=== PATIENT | male | born 1960 | race Two or more races ===

== ENCOUNTER 2022-04-06 12:29 | Inpatient (IN) | payer OTHER ==
[~2022-04-06] VITALS: Ht 167.6 cm; Wt 71.9 kg
[2022-04-06 13:28] LABS: Basophils # (auto) 0 10 ^3/uL (0-0.2); Basophils % (auto) 0.6 % (0.0-2.0); Eosinophils # (auto) 0.1 10 ^3/uL (0-0.8); Eosinophils % (auto) 2.5 % (0.0-7.0); Hematocrit 40.1 % (41.0-53.0); Hemoglobin 13.4 g/dL (13.5-17.5); Lymphocytes # (auto) 1.1 10 ^3/uL (0.4-5.4); Lymphocytes % (auto) 23.5 % (10.0-50.0); Mean Corpuscular Hemoglobin 32.9 pg (28.0-32.0); Mean Corpuscular Hgb Conc. 33.4 g/dL (32.0-36.0); Mean Corpuscular Volume 98.4 fL (80.0-100.0); Monocytes # (auto) 0.5 10 ^3/uL (0-1.3); Monocytes % (auto) 10.7 % (0.0-12.0); Neutrophils # (auto) 2.9 10 ^3/uL (1.6-8.6); Neutrophils % (auto) 62.7 % (37.0-80.0); Nucleated Red Blood Cells % 0.2 %; Red Blood Cells 4.08 10^6/uL (4.5-5.90); White Blood Cell 4.6 10^3/uL (4.4-10.8)
[2022-04-06] MEDS ORDERED: cloNIDine HCL 0.1 MG TAB PO ONE (13:45)
[2022-04-06 14:06] LABS: Albumin 3.2 g/dL (3.4-5.0); BUN/Creatinine Ratio 6.8; Bilirubin, Total 1.1 mg/dL (0.2-1.0); Calcium 8.4 mg/dL (8.5-10.1); Potassium 4.1 mmol/L (3.5-5.1); Total Protein 6.8 g/dL (6.4-8.2)
[2022-04-06] MEDS ORDERED: HYDROcodone-ACET 5/325MG TAB PO PRN (21:15)
[2022-04-06] MEDS ORDERED: ACETAMINOPHEN 325 MG TAB PO PRN (21:15)
[2022-04-06] MEDS ORDERED: DOCUSATE SOD 100 MG CAP PO PRN (21:15)
[2022-04-06] MEDS ORDERED: SODIUM CHLORIDE 0.9% 1,000 ML IV SCH (21:15)
[2022-04-06] MEDS ORDERED: hydrALAZINE HCL 20 MG/ML VL IV PRN (21:15)
[2022-04-06] MEDS ORDERED: ONDANSETRON HCL 4 MG/2 ML VIAL IV PRN (21:15)
[2022-04-06] MEDS ORDERED: NITROGLYCERIN 0.4 MG SL TAB SL PRN (23:45)
[2022-04-06] MEDS ORDERED: MORPHINE SULFATE INJ 2 MG/ml SYRG IV PRN (23:45)
[2022-04-06] MEDS: FAMOTIDINE (10MG/ML) 2ML VL IV SCH (23:51)
[2022-04-06] MEDS: METOPROLOL TARTRATE 50 MG TAB PO SCH (23:53)
[2022-04-07 04:57] LABS: Basophils # (auto) 0 10 ^3/uL (0-0.2); Basophils % (auto) 0.5 % (0.0-2.0); Eosinophils # (auto) 0.1 10 ^3/uL (0-0.8); Eosinophils % (auto) 4.7 % (0.0-7.0); Hematocrit 36.7 % (41.0-53.0); Hemoglobin 12.2 g/dL (13.5-17.5); Lymphocytes % (auto) 30.4 % (10.0-50.0); Mean Corpuscular Hemoglobin 32.4 pg (28.0-32.0); Mean Corpuscular Hgb Conc. 33.3 g/dL (32.0-36.0); Mean Corpuscular Volume 97.4 fL (80.0-100.0); Monocytes # (auto) 0.4 10 ^3/uL (0-1.3); Monocytes % (auto) 13.7 % (0.0-12.0); Neutrophils # (auto) 1.6 10 ^3/uL (1.6-8.6); Neutrophils % (auto) 50.7 % (37.0-80.0); Nucleated Red Blood Cells % 0.1 %; Red Blood Cells 3.77 10^6/uL (4.5-5.90); White Blood Cell 3.2 10^3/uL (4.4-10.8)
[2022-04-07 05:39] LABS: Potassium 4.4 mmol/L (3.5-5.1)
[2022-04-07 05:43] LABS: Albumin 2.7 g/dL (3.4-5.0); BUN/Creatinine Ratio 15.1
[2022-04-07 05:56] LABS: Bilirubin, Total 1.1 mg/dL (0.2-1.0); Total Protein 5.7 g/dL (6.4-8.2)
[2022-04-07] MEDS: METOPROLOL TARTRATE 50 MG TAB PO SCH (10:00)
[2022-04-07] MEDS: FAMOTIDINE (10MG/ML) 2ML VL IV SCH ×2 (10:00→21:31)
[2022-04-07] MEDS: FUROSEMIDE 40 MG/4 ML VIAL IV SCH (11:48)
[2022-04-07 13:43] LABS: INR 1.24 (0.9-1.15)
[2022-04-07 18:42] VITALS: BP 145/84
[2022-04-07] MEDS: CARVEDILOL 3.125 MG TAB PO SCH (21:32)
[2022-04-07 22:00] VITALS: BP 149/65
[2022-04-08] VITALS (7 sets, daily range): BP systolic 120–177; BP diastolic 43–109
[2022-04-08] MEDS: CARVEDILOL 3.125 MG TAB PO SCH ×2 (09:11→22:01)
[2022-04-08] MEDS: FAMOTIDINE (10MG/ML) 2ML VL IV SCH ×2 (09:11→21:59)
[2022-04-08] MEDS: FUROSEMIDE 40 MG/4 ML VIAL IV SCH (09:11)
[2022-04-08 10:01] LABS: Hepatitis A Total Antibody Positive (Negative)
[2022-04-08 11:31] LABS: Hepatitis B Surface Antibody Negative (Negative); Hepatitis C Antibody Negative (Negative)
[2022-04-09 05:00] VITALS: BP 124/73
[2022-04-09 08:00] VITALS: BP 135/74
[2022-04-09 09:00] VITALS: BP 135/74
[2022-04-09] MEDS: FUROSEMIDE 40 MG/4 ML VIAL IV SCH (09:02)
[2022-04-09] MEDS: FAMOTIDINE (10MG/ML) 2ML VL IV SCH (09:02)
[2022-04-09] MEDS: CARVEDILOL 3.125 MG TAB PO SCH (09:03)
[2022-04-09] MEDS ORDERED: FURO1TAB31 PO (10:54)
[2022-04-09 13:00] VITALS: BP 109/64
[2022-04-09 13:18] VITALS: BP 109/64
[2022-04-10] MEDS ORDERED: FUROSEMIDE 20 MG TAB PO SCH (10:00)
== END 2022-04-09 13:54 | disposition home or self-care (01) | DRG 434 ==
LOC: ER 12:30 → TELE 23:40 → TELE-WESTW 04-07 19:01
PROVIDERS: ADMIT Nurse Practitioner Family; ATTEND Family Medicine
PROC: 0W9G30Z Drainage of Peritoneal Cavity with Drainage Device, Percutaneous Approach (ICD-10-PCS; principal; 2022-04-08)
DX: K70.31 Alcoholic cirrhosis of liver with ascites (principal); I16.0 Hypertensive urgency; F10.10 Alcohol abuse, uncomplicated; R14.0 Abdominal distension (gaseous); I50.9 Heart failure, unspecified; I11.0 Hypertensive heart disease with heart failure; F17.200 Nicotine dependence, unspecified, uncomplicated; Z20.822 Contact with and (suspected) exposure to COVID-19; R79.89 Other specified abnormal findings of blood chemistry; R16.1 Splenomegaly, not elsewhere classified; Z71.6 Tobacco abuse counseling; Z79.899 Other long term (current) drug therapy
CPT/HCPCS: 36415; 71045; 74176; 76700; 76942; 80053; 83986; 84484; 85025; 85610; 86704; 86706; 86708; 86803; 87205; 87340; 87426; 89051; 93005; 93306; 96360; 99291; G0378; J3490

== ENCOUNTER 2023-11-15 12:01 | Inpatient (IN) | payer MEDICARE, OTHER ==
[~2023-11-15] VITALS: Ht 165.1 cm; Wt 68.0 kg
[~2023-11-15 12:01] MED LIST: FURO1TAB31 PO
[2023-11-15] MEDS: SODIUM CHLORIDE 0.9% 2,000 ML IV ONE (12:41)
[2023-11-15 12:58] LABS: Basophils # (auto) 0 10 ^3/uL (0-0.2); Eosinophils # (auto) 0.1 10 ^3/uL (0-0.8); Hematocrit 36.1 % (41.0-53.0); Mean Corpuscular Hgb Conc. 33.3 g/dL (32.0-36.0); Monocytes # (auto) 0.6 10 ^3/uL (0-1.3); Neutrophils # (auto) 2.6 10 ^3/uL (1.6-8.6)
[2023-11-15 13:00] LABS: Basophils % (auto) 0.6 % (0.0-2.0); Eosinophils % (auto) 2.8 % (0.0-7.0); Lymphocytes % (auto) 22.7 % (10.0-50.0); Mean Corpuscular Hemoglobin 33.6 pg (28.0-32.0); Mean Corpuscular Volume 100.8 fL (80.0-100.0); Monocytes % (auto) 14.1 % (0.0-12.0); Neutrophils % (auto) 59.8 % (37.0-80.0); Red Blood Cells 3.58 10^6/uL (4.5-5.90); Red Cell Distribution Width 14.2 % (11.8-14.3); White Blood Cell 4.4 10^3/uL (4.4-10.8)
[2023-11-15 13:24] VITALS: RESP 20; O2SAT 96
[2023-11-15] MEDS: KETOROLAC TROMETH 30 MG/ML 1ML VIAL IV ONE (16:00)
[2023-11-15] MEDS: levoFLOXacin 500MG 100 ML IV ONE (16:01)
[2023-11-15] MEDS: ONDANSETRON ODT 4 MG TAB PO ONE (16:01)
[2023-11-15] MEDS: FUROSEMIDE 100 MG/10ML VIAL IV ONE (16:01)
[2023-11-15] MEDS: metroNIDAZOLE 500MG/100ML 100 ML IV ONE (16:01)
[2023-11-15 17:24] LABS: Urine Bacteria None Seen /hpf (None Seen); Urine WBC None Seen /hpf (0 - 3)
[2023-11-15 17:30] LABS: Urine Blood Negative /uL (Negative); Urine Clarity Clear (Clear); Urine Color Colorless (Yellow); Urine Protein, UAD Negative (Negative); Urine Specific Gravity 1.005 (1.001-1.035); Urine Urobilinogen Normal (Negative); Urine pH 5.5 (5.0-9.0)
[2023-11-15 17:45] LABS: Amphetamine Screen, Urine Neg (NEGATIVE); Barbiturate Scree,Urine Neg (NEGATIVE); Benzodiazephine Screen, Urine Neg (NEGATIVE); Cocaine Screen, Urine Neg (NEGATIVE)
[2023-11-15] MEDS ORDERED: NITROGLYCERIN 0.4 MG SL TAB SL PRN (17:45)
[2023-11-15] MEDS ORDERED: ONDANSETRON HCL 4 MG/2 ML VIAL IV PRN (17:45)
[2023-11-15] MEDS ORDERED: MORPHINE SULFATE INJ 2 MG/ml SYRG IV PRN ×2 (17:45)
[2023-11-15] MEDS ORDERED: DOCUSATE SOD 100 MG CAP PO PRN (17:45)
[2023-11-15 17:46] LABS: Cannabinoid Screen, Urine Neg (NEGATIVE); Opiate Scree,Urine Neg (NEGATIVE); Phencyclidine Screen, Urine Neg (NEGATIVE)
[2023-11-15] MEDS: FUROSEMIDE 40 MG/4 ML VIAL IV SCH (18:20)
[2023-11-15] MEDS: PANTOPRAZOLE 40 MG/10 ML VIAL INJ IV ONE (18:46)
[2023-11-15] MEDS ORDERED: SPIR50TA5 PO (20:12)
[2023-11-15] MEDS ORDERED: LOSA-534 PO (20:12)
[2023-11-15 21:00] VITALS: BP 142/64; PULSE 65; RESP 18; TEMP 98.2; O2SAT 98
[2023-11-15] MEDS: CIPROFLOXACIN 400MG/200ML 200 ML IV SCH (21:43)
[2023-11-15] MEDS: metroNIDAZOLE 500MG/100ML 100 ML IV SCH (22:50)
[2023-11-15] MEDS: PANTOPRAZOLE 40 MG/10 ML VIAL INJ IV SCH (22:50)
[2023-11-16 01:00] VITALS: BP 138/64; PULSE 82; RESP 18; TEMP 98.1; O2SAT 97
[2023-11-16 05:00] VITALS: BP 132/65; PULSE 83; RESP 17; TEMP 98; O2SAT 96
[2023-11-16 05:54] LABS: Basophils # (auto) 0 10 ^3/uL (0-0.2); Basophils % (auto) 0.4 % (0.0-2.0); Eosinophils # (auto) 0.2 10 ^3/uL (0-0.8); Hematocrit 31.6 % (41.0-53.0); Mean Corpuscular Hemoglobin 34.1 pg (28.0-32.0); Mean Corpuscular Hgb Conc. 33.7 g/dL (32.0-36.0); Red Blood Cells 3.12 10^6/uL (4.5-5.90)
[2023-11-16 06:02] LABS: Eosinophils % (auto) 4.5 % (0.0-7.0); Hemoglobin 10.7 g/dL (13.5-17.5); Lymphocytes # (auto) 0.7 10 ^3/uL (0.4-5.4); Monocytes # (auto) 0.5 10 ^3/uL (0-1.3); Monocytes % (auto) 16.1 % (0.0-12.0); Neutrophils # (auto) 1.9 10 ^3/uL (1.6-8.6); Nucleated Red Blood Cells % 0.4 %; Red Cell Distribution Width 14.4 % (11.8-14.3); White Blood Cell 3.3 10^3/uL (4.4-10.8)
[2023-11-16 06:37] LABS: Alanine Aminotransferase 57 U/L (7-40); Alkaline Phosphatase 141 U/L (46-116); Anion Gap 4 (5-15); Calcium 8.7 mg/dL (8.5-10.1); Carbon Dioxide 22 mmol/L (20-30); Chloride 111 mmol/L (98-107); Glucose 116 mg/dL (74-106); Sodium 137 mmol/L (136-145)
[2023-11-16 06:38] LABS: Albumin 3.2 g/dL (3.2-4.8); Aspartate Aminotransferase 52 U/L (13-40); Blood Urea Nitrogen 24 mg/dL (9-23)
[2023-11-16 06:40] LABS: Bilirubin, Total 0.9 mg/dL (0.2-1.0); Total Protein 5.9 g/dL (5.7-8.2)
[2023-11-16 06:47] LABS: Potassium 5.6 mmol/L (3.5-5.1)
[2023-11-16 08:52] VITALS: BP 132/61; PULSE 81; RESP 18; TEMP 98.4; O2SAT 97
[2023-11-16 13:00] VITALS: BP 128/55; PULSE 79; RESP 19; TEMP 98.4; O2SAT 100
[2023-11-16] MEDS: DEXTROSE (50%) 50ML SYRG IV ONE (14:38)
[2023-11-16] MEDS: CALCIUM GLUC 1,000mg/50ml-NS 50 ML IV ONE (14:39)
[2023-11-16] MEDS: FUROSEMIDE 20 MG/2 ML VIAL IV ONE (14:40)
[2023-11-16] MEDS: InsuLIN REG 1unit/0.01ml Soln (100units/ml) IV ONE (14:41)
[2023-11-16] MEDS: SODIUM ZIRCONIUM CYCL 10 GM PAK PO ONE (14:41)
[2023-11-16 16:39] VITALS: BP 110/61; PULSE 68; RESP 19; TEMP 98; O2SAT 98
[2023-11-16] MEDS: LACTULOSE 20Gm/30ML SOLN PO SCH (18:11)
[2023-11-16 21:00] VITALS: BP 133/73; PULSE 90; RESP 18; TEMP 98.7; O2SAT 97
[2023-11-17 01:00] VITALS: BP 129/75; PULSE 88; RESP 17; TEMP 98.9; O2SAT 98
[2023-11-17 05:00] VITALS: BP 127/66; PULSE 71; RESP 18; TEMP 97.8; O2SAT 98
[2023-11-17 08:40] VITALS: BP 130/62; PULSE 75; RESP 18; TEMP 98; O2SAT 98
[2023-11-17 09:41] LABS: Hepatitis B Surface Antigen Negative (Negative)
[2023-11-17 09:44] LABS: INR 1.41 (0.9-1.15); Partial Thromboplastin Time 29.8 SEC (24.5-34.5); Prothrombin Time 14.6 sec (9.3-11.8)
[2023-11-17 10:01] LABS: Hepatitis A Ab IgM Negative
[2023-11-17 10:03] LABS: Hepatitis C Antibody Negative (Negative)
[2023-11-17 11:09] LABS: Hepatitis B Core IgM Negative
[2023-11-17 12:50] VITALS: BP 128/58; PULSE 71; RESP 20; TEMP 98; O2SAT 97
[2023-11-17 16:40] VITALS: BP 132/72; PULSE 86; RESP 20; TEMP 97.5; O2SAT 98
[2023-11-17 21:00] VITALS: BP 142/70; PULSE 85; RESP 17; TEMP 97.6; O2SAT 97
[2023-11-17 21:59] LABS: Body Fluid Red Blood Cells 185 CUMM (0-2000); Body Fluid White Blood Cells 273 CUMM (0-200)
[2023-11-17 22:00] LABS: Body Fluid Polymorphonuclear 20 % (0-25)
[2023-11-18 01:00] VITALS: BP 116/44; PULSE 76; RESP 16; TEMP 97.4; O2SAT 96
[2023-11-18 05:00] VITALS: BP 121/66; PULSE 88; RESP 18; TEMP 98; O2SAT 98
[2023-11-18 08:45] VITALS: BP 136/76; PULSE 91; RESP 17; TEMP 97.9; O2SAT 95
[2023-11-18 13:16] VITALS: BP 140/79; PULSE 89; RESP 17; TEMP 97.9; O2SAT 96
[2023-11-18 17:50] VITALS: BP 134/72; PULSE 86; RESP 17; TEMP 97.8; O2SAT 97
[2023-11-18 21:00] VITALS: BP 125/50; PULSE 20; TEMP 98.3; O2SAT 96
[2023-11-19 01:00] VITALS: BP 107/51; PULSE 73; RESP 20; TEMP 98; O2SAT 96
[2023-11-19 05:00] VITALS: BP 109/57; PULSE 87; RESP 20; TEMP 97.6; O2SAT 95
[2023-11-19 09:04] VITALS: BP 117/54; PULSE 77; RESP 18; TEMP 97.8; O2SAT 96
[2023-11-19 10:06] LABS: Protein, Body Fluid 1.8 g/dL (.)
[2023-11-19] MEDS ORDERED: MET500T PO (12:54)
[2023-11-19] MEDS ORDERED: LACT10PA2 PO (12:54)
[2023-11-19] MEDS ORDERED: CIPR-173 PO (12:54)
[2023-11-19 14:57] VITALS: BP 109/63; TEMP 36.6
[2023-11-19 15:11] VITALS: BP 141/77; PULSE 75; RESP 18; TEMP 98.1; O2SAT 97
== END 2023-11-19 16:40 | disposition home or self-care (01) | DRG 280 ==
LOC: ER 12:01 → OVERFLOW 17:51 → WEST WING 17:51
PROVIDERS: ADMIT Nurse Practitioner Family; ATTEND Family Medicine
PROC: 0W9G3ZZ Drainage of Peritoneal Cavity, Percutaneous Approach (ICD-10-PCS; principal; 2023-11-17)
PROC: 05HC33Z Insertion of Infusion Device into Left Basilic Vein, Percutaneous Approach (ICD-10-PCS; 2023-11-18)
PROC: B54NZZA Ultrasonography of Left Upper Extremity Veins, Guidance (ICD-10-PCS; 2023-11-18)
DX: K70.31 Alcoholic cirrhosis of liver with ascites (principal); D69.6 Thrombocytopenia, unspecified; K76.6 Portal hypertension; E44.0 Moderate protein-calorie malnutrition; E88.09 Other disorders of plasma-protein metabolism, not elsewhere classified; E87.5 Hyperkalemia; K52.9 Noninfective gastroenteritis and colitis, unspecified; I10 Essential (primary) hypertension; K40.90 Unilateral inguinal hernia, without obstruction or gangrene, not specified as recurrent; K42.9 Umbilical hernia without obstruction or gangrene; K80.20 Calculus of gallbladder without cholecystitis without obstruction; F17.210 Nicotine dependence, cigarettes, uncomplicated; Z88.0 Allergy status to penicillin; Z79.899 Other long term (current) drug therapy; Z83.3 Family history of diabetes mellitus; Z68.24 Body mass index [BMI] 24.0-24.9, adult
CPT/HCPCS: 36415; 74176; 76705; 76942; 80053; 80074; 80307; 81001; 82105; 82140; 82728; 82962; 83880; 83986; 84132; 84484; 85025; 85610; 85730; 86850; 86900; 86901; 87205; 89051; 93005; 97110; 97116; 97163; 97530; 99291; C9113; G0378; J1815; J1885; J1956; J3490; Q0162

== ENCOUNTER 2023-12-07 11:40 | Inpatient (IN) | payer MEDICAID ==
[~2023-12-07] VITALS: Ht 165.1 cm; Wt 70.4 kg
[~2023-12-07 11:40] MED LIST changes: +CIPR-173 PO; -FURO1TAB31 PO; +LACT10PA2 PO; +LOSA-534 PO; +MET500T PO; +SPIR50TA5 PO
[2023-12-07 12:31] LABS: Basophils # (auto) 0 10 ^3/uL (0-0.2); Eosinophils # (auto) 0.2 10 ^3/uL (0-0.8); Monocytes # (auto) 0.5 10 ^3/uL (0-1.3); Nucleated Red Blood Cells % 0.1 %; Red Cell Distribution Width 14.5 % (11.8-14.3)
[2023-12-07 12:35] LABS: Basophils % (auto) 0.6 % (0.0-2.0); Eosinophils % (auto) 2.4 % (0.0-7.0); Hematocrit 32.3 % (41.0-53.0); Hemoglobin 10.7 g/dL (13.5-17.5); Lymphocytes # (auto) 1.5 10 ^3/uL (0.4-5.4); Lymphocytes % (auto) 23.9 % (10.0-50.0); Mean Corpuscular Hemoglobin 34.2 pg (28.0-32.0); Mean Corpuscular Hgb Conc. 33.2 g/dL (32.0-36.0); Neutrophils # (auto) 4.1 10 ^3/uL (1.6-8.6); Neutrophils % (auto) 65.1 % (37.0-80.0); Red Blood Cells 3.13 10^6/uL (4.5-5.90); White Blood Cell 6.2 10^3/uL (4.4-10.8)
[2023-12-07 12:42] LABS: Chloride 113 mmol/L (98-107); Sodium 133 mmol/L (136-145)
[2023-12-07 12:43] LABS: Anion Gap 6 (5-15); Calcium 9.9 mg/dL (8.7-10.4); Carbon Dioxide 14 mmol/L (20-30)
[2023-12-07 12:48] LABS: Blood Urea Nitrogen 60 mg/dL (9-23); Glucose 158 mg/dL (74-106)
[2023-12-07] MEDS: ONDANSETRON HCL 4 MG/2 ML VIAL IV ONE (12:49)
[2023-12-07 12:59] LABS: Potassium 7.8 mmol/L (3.5-5.1)
[2023-12-07 13:50] VITALS: PULSE 89; RESP 18; O2SAT 98
[2023-12-07] MEDS: CALCIUM GLUC 1,000mg/50ml-NS 50 ML IV ONE (14:00)
[2023-12-07] MEDS: SODIUM ZIRCONIUM CYCL 10 GM PAK PO ONE ×2 (14:10→17:16)
[2023-12-07] MEDS: SODIUM BICARB 8.4% 50Meq/50ml SYR INJ IV ONE (14:15)
[2023-12-07] MEDS: ALBUTEROL SULF 2.5 MG/0.5ML(0.5%) NEB SOLN NEB ONE (14:30)
[2023-12-07] MEDS: FUROSEMIDE 20 MG/2 ML VIAL IV ONE (14:36)
[2023-12-07] MEDS: InsuLIN REG 1unit/0.01ml Soln (100units/ml) IV ONE ×2 (15:01→17:20)
[2023-12-07] MEDS: DEXTROSE (50%) 50ML SYRG IV ONE ×2 (15:02→17:19)
[2023-12-07] MEDS ORDERED: DOCUSATE SOD 100 MG CAP PO PRN (16:30)
[2023-12-07] MEDS ORDERED: D5W 5% 1,000 ML IV ONE (16:30)
[2023-12-07 17:02] LABS: Chloride 113 mmol/L (98-107); Sodium 136 mmol/L (136-145)
[2023-12-07 17:03] LABS: Anion Gap 6 (5-15); Carbon Dioxide 17 mmol/L (20-30)
[2023-12-07 17:04] LABS: Calcium 9.9 mg/dL (8.7-10.4)
[2023-12-07 17:08] LABS: BUN/Creatinine Ratio 30.8 (10.0-20.0); Blood Urea Nitrogen 68 mg/dL (9-23); Glucose 124 mg/dL (74-106)
[2023-12-07] MEDS: SODIUM CHLORIDE 0.9% 500 ML IV ONE (18:35)
[2023-12-07] MEDS: D5W/SOD CHLO 0.9% 1,000 ML IV SCH (18:37)
[2023-12-07 20:32] VITALS: PULSE 89; RESP 17; O2SAT 99
[2023-12-07 20:43] LABS: Chloride 112 mmol/L (98-107); Sodium 134 mmol/L (136-145)
[2023-12-07 20:44] LABS: Anion Gap 7 (5-15); Calcium 9.6 mg/dL (8.7-10.4); Carbon Dioxide 15 mmol/L (20-30)
[2023-12-07 20:49] LABS: BUN/Creatinine Ratio 30.1 (10.0-20.0); Blood Urea Nitrogen 63 mg/dL (9-23); Glucose 106 mg/dL (74-106)
[2023-12-07] MEDS: SODIUM CHLOR 0.9% PF (SALINE LOCK) 10ML VIAL/SYR IV SCH (22:00)
[2023-12-08] VITALS (16 sets, daily range): BP systolic 65–113; BP diastolic 44–61; PULSE 105–133; RESP 19–34; TEMP 94.6–98.3; O2SAT 98
[2023-12-08] MEDS: InsuLIN REG 1unit/0.01ml Soln (100units/ml) IV ONE ×4 (00:15→23:28)
[2023-12-08] MEDS: ALBUTEROL SULF 2.5 MG/0.5ML(0.5%) NEB SOLN NEB ONE ×3 (00:37→21:35)
[2023-12-08] MEDS: SODIUM BICARB 8.4% 50Meq/50ml SYR Vial IV ONE ×5 (00:39→22:44)
[2023-12-08 00:45] LABS: Chloride 112 mmol/L (98-107); Sodium 134 mmol/L (136-145)
[2023-12-08 00:46] LABS: Anion Gap 6 (5-15); Carbon Dioxide 16 mmol/L (20-30)
[2023-12-08 00:47] LABS: Calcium 9.1 mg/dL (8.7-10.4)
[2023-12-08] MEDS: CALCIUM GLUC 1,000mg/50ml-NS 50 ML IV ONE ×4 (00:50→23:22)
[2023-12-08 00:51] LABS: Glucose 133 mg/dL (74-106)
[2023-12-08] MEDS: DEXTROSE (50%) 50ML SYRG IV ONE ×5 (00:51→23:54)
[2023-12-08 00:52] LABS: BUN/Creatinine Ratio 36.6 (10.0-20.0)
[2023-12-08 00:58] LABS: Blood Urea Nitrogen 74 mg/dL (9-23); Potassium 7.5 mmol/L (3.5-5.1)
[2023-12-08] MEDS: SODIUM ZIRCONIUM CYCL 10 GM PAK PO ONE ×3 (01:08→21:30)
[2023-12-08] MEDS: SODIUM CHLORIDE 0.9% 500 ML IV ONE ×3 (02:27→21:51)
[2023-12-08] MEDS ORDERED: PHENYLEPHRINE IV 250 ML IV SCH ×2 (04:45→20:45)
[2023-12-08 04:59] LABS: Alanine Aminotransferase 59 U/L (7-40); Albumin 2.5 g/dL (3.2-4.8); Alkaline Phosphatase 83 U/L (46-116); Anion Gap 11 (5-15); Aspartate Aminotransferase 51 U/L (13-40); BUN/Creatinine Ratio 32.2 (10.0-20.0); Blood Urea Nitrogen 68 mg/dL (9-23); Calcium 8.6 mg/dL (8.7-10.4); Carbon Dioxide 12 mmol/L (20-30); Chloride 114 mmol/L (98-107); Glucose 226 mg/dL (74-106); Sodium 137 mmol/L (136-145)
[2023-12-08 05:00] LABS: Bilirubin, Total 0.7 mg/dL (0.2-1.0); Total Protein 4.9 g/dL (5.7-8.2)
[2023-12-08] MEDS: ONDANSETRON HCL 4 MG/2 ML VIAL ONE (05:02)
[2023-12-08] MEDS: ONDANSETRON HCL 4 MG/2 ML VIAL IV PRN (05:02)
[2023-12-08 05:07] LABS: Potassium 6.5 mmol/L (3.5-5.1)
[2023-12-08 05:24] LABS: Basophils # (auto) 0 10 ^3/uL (0-0.2); Basophils % (auto) 0.1 % (0.0-2.0); Eosinophils # (auto) 0 10 ^3/uL (0-0.8); Hematocrit 21.6 % (41.0-53.0); Lymphocytes # (auto) 1.2 10 ^3/uL (0.4-5.4); Mean Corpuscular Hemoglobin 33.9 pg (28.0-32.0); Mean Corpuscular Hgb Conc. 30.9 g/dL (32.0-36.0); Mean Corpuscular Volume 109.7 fL (80.0-100.0); Monocytes % (auto) 9.6 % (0.0-12.0); Neutrophils # (auto) 8.5 10 ^3/uL (1.6-8.6); Neutrophils % (auto) 79.3 % (37.0-80.0); Red Blood Cells 1.97 10^6/uL (4.5-5.90); Red Cell Distribution Width 15.9 % (11.8-14.3); White Blood Cell 10.8 10^3/uL (4.4-10.8)
[2023-12-08 05:27] LABS: Hemoglobin 6.7 g/dL (13.5-17.5)
[2023-12-08] MEDS: OCTREOTIDE ACETATE 500 MCG in SODIUM CHL 0.9% 99 ML IV SCH (06:00)
[2023-12-08] MEDS: ALBUMIN 5% 250 ML IV ONE (06:08)
[2023-12-08] MEDS: PANTOPRAZOLE 80 MG in SODIUM CHL 0.9% 100 ML IV ONE (08:59)
[2023-12-08] MEDS: OCTREOTIDE ACETATE 100 MCG in SODIUM CHL 0.9% 50 ML IV ONE (09:00)
[2023-12-08 09:17] LABS: Chloride 112 mmol/L (98-107); Sodium 140 mmol/L (136-145)
[2023-12-08 09:18] LABS: Calcium 9.3 mg/dL (8.7-10.4)
[2023-12-08 09:23] LABS: BUN/Creatinine Ratio 33.3 (10.0-20.0); Glucose 201 mg/dL (74-106)
[2023-12-08 09:28] LABS: Blood Urea Nitrogen 80 mg/dL (9-23); Potassium 6.9 mmol/L (3.5-5.1)
[2023-12-08] MEDS: PANTOPRAZOLE 40mg/50ML NS AE 50 ML IV SCH (09:57)
[2023-12-08 12:15] LABS: Anion Gap 18 (5-15); Carbon Dioxide 10 mmol/L (20-30)
[2023-12-08] MEDS: SODIUM CHLORIDE 0.9% 1,000 ML IV ONE ×2 (12:38→15:13)
[2023-12-08] MEDS: SODIUM CHLORIDE 0.9% 1,000 ML IV SCH (14:30)
[2023-12-08] MEDS: ALBUMIN 25% 50 ML IV ONE ×3 (15:32→21:20)
[2023-12-08 15:38] LABS: Hematocrit 24.3 % (41.0-53.0); Hemoglobin 7.7 g/dL (13.5-17.5)
[2023-12-08 15:52] LABS: INR 2.69 (0.9-1.15); Partial Thromboplastin Time 43.8 SEC (24.5-34.5); Prothrombin Time 26.5 sec (9.3-11.8)
[2023-12-08 15:57] LABS: % Iron Saturation 86.4 % (20-55)
[2023-12-08 16:08] LABS: Sodium Urine 16 mmol/L (40-220)
[2023-12-08 16:12] LABS: Chloride 116 mmol/L (98-107); Sodium 144 mmol/L (136-145)
[2023-12-08 16:13] LABS: Anion Gap 18.00001 (5-15); Calcium 8.9 mg/dL (8.7-10.4)
[2023-12-08 16:15] LABS: Protein, Urine 12.7 mg/dL (0.0-11.9)
[2023-12-08 16:16] LABS: Amphetamine Screen, Urine Neg (NEGATIVE); Barbiturate Scree,Urine Neg (NEGATIVE); Benzodiazephine Screen, Urine Neg (NEGATIVE); Cocaine Screen, Urine Neg (NEGATIVE)
[2023-12-08 16:17] LABS: Cannabinoid Screen, Urine Neg (NEGATIVE); Creatinine, Urine 75.08 mg/dL (30.0-125.0); Opiate Scree,Urine Neg (NEGATIVE); Phencyclidine Screen, Urine Neg (NEGATIVE); Urine Protein/Creatinine Ratio 0.17
[2023-12-08 16:18] LABS: BUN/Creatinine Ratio 29.3 (10.0-20.0); Blood Urea Nitrogen 76 mg/dL (9-23); Glucose 85 mg/dL (74-106)
[2023-12-08 16:20] LABS: Carbon Dioxide < 10 mmol/L (20-30); Potassium 7.4 mmol/L (3.5-5.1)
[2023-12-08 16:22] LABS: Thyroid Stimulating Hormone 1.35 uIU/mL (0.55-4.78)
[2023-12-08 16:40] LABS: Urine Bacteria FEW /hpf (None Seen); Urine Blood Negative /uL (Negative); Urine Clarity Turbid (Clear); Urine Color Yellow (Yellow); Urine Hyaline Cast MOD /lpf (0 - 2); Urine Mucus FEW (None Seen); Urine Protein, UAD Negative (Negative); Urine Specific Gravity 1.015 (1.001-1.035); Urine Urobilinogen Normal (Negative); Urine WBC 5 /hpf (0 - 3)
[2023-12-08] MEDS ORDERED: SODIUM BICARB 50mEq/50ml Vial 150 ML in D5W 5% 1,000 ML IV SCH ×2 (17:15→21:15)
[2023-12-08] MEDS ORDERED: SODIUM CHLORIDE 0.9% 1,000 ML IV SCH (18:00)
[2023-12-08 19:03] LABS: Base Excess -10.5 mmol/L (-2.0-2.0)
[2023-12-08] MEDS: AMIODARONE BOLUS KIT 100 ML IV ONE ×2 (19:04→19:33)
[2023-12-08] MEDS: FUROSEMIDE 40 MG/4 ML VIAL ONE (19:04)
[2023-12-08] MEDS: DEXTROSE 50% SYRINGE 50 ML IV ONE (19:05)
[2023-12-08] MEDS: AMIODARONE 450mg/250ml AE 250 ML IV ONE (19:05)
[2023-12-08] MEDS: AMIODARONE 450mg/250ml AE 250 ML IV SCH (19:15)
[2023-12-08] MEDS ORDERED: D5W/SOD CHL 0.45% 1,000 ML IV SCH (19:30)
[2023-12-08] MEDS: FUROSEMIDE 20 MG/2 ML VIAL IV ONE (19:32)
[2023-12-08 19:33] LABS: Basophils # (auto) 0 10 ^3/uL (0-0.2); Basophils % (auto) 0.1 % (0.0-2.0); Eosinophils # (auto) 0 10 ^3/uL (0-0.8); Monocytes # (auto) 0.2 10 ^3/uL (0-1.3); Monocytes % (auto) 1.3 % (0.0-12.0); Neutrophils # (auto) 13.2 10 ^3/uL (1.6-8.6)
[2023-12-08] MEDS: FUROSEMIDE 40 MG/4 ML VIAL IV ONE (19:33)
[2023-12-08 19:35] LABS: Hematocrit 18.2 % (41.0-53.0); Lymphocytes # (auto) 0.7 10 ^3/uL (0.4-5.4); Lymphocytes % (auto) 5.1 % (10.0-50.0); Mean Corpuscular Hemoglobin 33.2 pg (28.0-32.0); Mean Corpuscular Volume 103.5 fL (80.0-100.0); Neutrophils % (auto) 93.5 % (37.0-80.0); Red Blood Cells 1.75 10^6/uL (4.5-5.90); Red Cell Distribution Width 15.9 % (11.8-14.3); White Blood Cell 14.2 10^3/uL (4.4-10.8)
[2023-12-08 19:49] LABS: Alanine Aminotransferase 700 U/L (7-40); Albumin 2.3 g/dL (3.2-4.8); Alkaline Phosphatase 55 U/L (46-116); Anion Gap 21 (5-15); Calcium 8.6 mg/dL (8.7-10.4); Carbon Dioxide 11 mmol/L (20-30); Chloride 113 mmol/L (98-107); Sodium 145 mmol/L (136-145)
[2023-12-08 19:50] LABS: Bilirubin, Total 1.1 mg/dL (0.2-1.0); Total Protein 3.8 g/dL (5.7-8.2)
[2023-12-08 20:00] LABS: Aspartate Aminotransferase 1039 U/L (13-40)
[2023-12-08 20:13] LABS: Hemoglobin 5.8 g/dL (13.5-17.5); Lactic Acid w/Reflex 15.1 mmol/L (0.4-2.0)
[2023-12-08 20:14] LABS: Blood Urea Nitrogen 98 mg/dL (9-23); Glucose 253 mg/dL (74-106); Potassium 7.9 mmol/L (3.5-5.1)
[2023-12-08] MEDS: LIDOCAINE 1% HCL (LOCAL ANESTH.) INJ 20ML MDV ONE (20:37)
[2023-12-08] MEDS: ALBUMIN 25% 100 ML IV SCH (21:00)
[2023-12-08] MEDS: LIDOCAINE 1% HCL (LOCAL ANESTH.) INJ 20ML MDV ID ONE (21:11)
[2023-12-08] MEDS ORDERED: CALCIUM GLUC 1,000mg/50ml-NS 50 ML IV ONE (21:30)
[2023-12-08] MEDS ORDERED: CALCIUM CHL 100MG/ML 1,000 MG in D5W 5% 100 ML IV ONE (21:30)
[2023-12-08] MEDS: ALBUTEROL SULF 2.5 MG/0.5ML(0.5%) NEB SOLN ONE (21:35)
[2023-12-08] MEDS: CLINDAMYCIN 600MG IV 50 ML IV ONE (21:48)
[2023-12-08] MEDS: AZTREONAM 1GM INJ 1 GM in D5W 5% 50 ML IV SCH (22:00)
[2023-12-08] MEDS: CLINDAMYCIN 900MG IV 50 ML IV SCH (22:00)
[2023-12-08] MEDS ORDERED: SODIUM ZIRCONIUM CYCL 10 GM PAK PO SCH (22:00)
[2023-12-08] MEDS ORDERED: CLINDAMYCIN 600MG IV 50 ML IV SCH (22:00)
[2023-12-08] MEDS: SODIUM ZIRCONIUM CYCL 10 GM PAK PO SCH (22:00)
[2023-12-08 22:14] LABS: Hematocrit 20.8 % (41.0-53.0)
[2023-12-08 22:20] LABS: Hemoglobin 6.2 g/dL (13.5-17.5)
[2023-12-08] MEDS: AZTREONAM 1GM INJ 1 GM in D5W 5% 50 ML IV ONE (22:45)
[2023-12-08] MEDS: BUMETANIDE INJECTION 25 MG in GIVE UN-DILUTED 0 ML IV SCH (22:45)
[2023-12-08] MEDS: SODIUM BICARB 50mEq/50ml Vial 150 ML in D5W 5% 1,000 ML IV SCH (23:04)
[2023-12-08] MEDS: BUMETANIDE 2.5mg/10ml (0.25 mg/ml) INJ IV ONE (23:31)
[2023-12-08] MEDS: SODIUM BICARB 8.4% 50Meq/50ml SYR INJ IV ONE (23:35)
[2023-12-09] VITALS (12 sets, daily range): BP systolic 94–119; BP diastolic 39–99; PULSE 96–110; RESP 12–25; TEMP 97.5–98.4; O2SAT 95–98
[2023-12-09 01:00] LABS: Chloride 111 mmol/L (98-107); Sodium 148 mmol/L (136-145)
[2023-12-09 01:01] LABS: Anion Gap 27.00001 (5-15); Calcium 9.2 mg/dL (8.7-10.4)
[2023-12-09 01:04] LABS: Hematocrit 20.5 % (41.0-53.0)
[2023-12-09 01:06] LABS: BUN/Creatinine Ratio 25.3 (10.0-20.0); Glucose 273 mg/dL (74-106)
[2023-12-09 01:23] LABS: Potassium 5.8 mmol/L (3.5-5.1)
[2023-12-09 01:24] LABS: Blood Urea Nitrogen 80 mg/dL (9-23); Carbon Dioxide < 10 mmol/L (20-30); Hemoglobin 6.5 g/dL (13.5-17.5)
[2023-12-09] MEDS: AMIODARONE 450mg/250ml AE 250 ML IV SCH (01:46)
[2023-12-09 04:15] LABS: Base Excess -9.3 mmol/L (-2.0-2.0)
[2023-12-09] MEDS: NOREPINEPHRINE 8 MG/250ML KIT 250 ML IV SCH (05:07)
[2023-12-09 06:17] LABS: Alkaline Phosphatase 87 U/L (46-116); Anion Gap 21 (5-15); BUN/Creatinine Ratio 25.6 (10.0-20.0); Calcium 9.3 mg/dL (8.7-10.4); Carbon Dioxide 15 mmol/L (20-30); Chloride 110 mmol/L (98-107); Glucose 228 mg/dL (74-106); Magnesium 1.7 mg/dL (1.6-2.6); Potassium 5.5 mmol/L (3.5-5.1); Sodium 146 mmol/L (136-145); Total Protein 4.8 g/dL (5.7-8.2)
[2023-12-09 06:18] LABS: Bilirubin, Total 1.1 mg/dL (0.2-1.0); Phosphorus 7.1 mg/dL (2.4-5.1)
[2023-12-09 06:33] LABS: Alanine Aminotransferase 2887 U/L (7-40); Aspartate Aminotransferase > 6000 U/L (13-40)
[2023-12-09 06:34] LABS: Blood Urea Nitrogen 81 mg/dL (9-23)
[2023-12-09] MEDS: InsuLIN REG 1unit/0.01ml Soln (100units/ml) IV ONE (07:45)
[2023-12-09] MEDS: DEXTROSE (50%) 50ML SYRG IV ONE (07:45)
[2023-12-09] MEDS: SODIUM BICARB 8.4% 50Meq/50ml SYR Vial IV ONE (07:45)
[2023-12-09 08:01] LABS: Hematocrit 21.9 % (41.0-53.0); Hemoglobin 7.3 g/dL (13.5-17.5); Mean Corpuscular Hemoglobin 31.1 pg (28.0-32.0); Mean Corpuscular Hgb Conc. 33.4 g/dL (32.0-36.0); Mean Corpuscular Volume 93.1 fL (80.0-100.0); Red Blood Cells 2.35 10^6/uL (4.5-5.90); Red Cell Distribution Width 16.7 % (11.8-14.3); White Blood Cell 8.7 10^3/uL (4.4-10.8)
[2023-12-09 08:10] LABS: Chloride 109 mmol/L (98-107); Potassium 5.2 mmol/L (3.5-5.1); Sodium 146 mmol/L (136-145)
[2023-12-09] MEDS: ALBUTEROL SULF 2.5 MG/0.5ML(0.5%) NEB SOLN NEB ONE (08:10)
[2023-12-09 08:11] LABS: Anion Gap 16 (5-15); Carbon Dioxide 21 mmol/L (20-30)
[2023-12-09 08:12] LABS: Calcium 8.9 mg/dL (8.7-10.4)
[2023-12-09 08:16] LABS: Glucose 228 mg/dL (74-106)
[2023-12-09 08:17] LABS: BUN/Creatinine Ratio 28.2 (10.0-20.0)
[2023-12-09 08:24] LABS: Blood Urea Nitrogen 89 mg/dL (9-23)
[2023-12-09 09:05] LABS: Band Neutrophils % (manual) 0; Basophils % (manual) 0 (0.0-2.0); Blast Cells 0; Eosinophils % (manual) 0 (0-7); Metamyelocytes % 0; Myelocytes % 0; Promyelocytes % 0; Reactive Lymphocytes 0
[2023-12-09] MEDS ORDERED: SODIUM CHLORIDE LOCK 10 ML ONE (09:08)
[2023-12-09] MEDS ORDERED: LIDOCAINE VISCOUS 2% 15ML UD ONE (09:08)
[2023-12-09 09:09] LABS: Large Platelets FEW; Lymphocytes % (manual) 12 (10.0-50.0); Monocytes % (manual) 6 (0-12); Platelet Estimate Decrea; Smudge Cells 1 /100 WBC
[2023-12-09] MEDS ORDERED: fentaNYL CITRATE 100 MCG/2 ML VL ONE (09:09)
[2023-12-09] MEDS ORDERED: MIDAZOLAM HCL 5 MG/ML-1ML VIAL ONE (09:09)
[2023-12-09] MEDS ORDERED: diphenhdrAMINE HCL 50 MG/1 ML VL ONE (09:09)
[2023-12-09] MEDS: SODIUM CHLORIDE 0.9% 2,000 ML IV ONE (10:13)
[2023-12-09] MEDS: SODIUM CHL 0.9% 1000 ML BAG XX ONE (10:30)
[2023-12-09] MEDS ORDERED: D5W/SOD CHLO 0.9% 1,000 ML IV SCH (12:00)
[2023-12-09] MEDS: D5W 5% 1,000 ML IV SCH (12:30)
[2023-12-09 15:10] LABS: Basophils # (auto) 0 10 ^3/uL (0-0.2); Basophils % (auto) 0.1 % (0.0-2.0); Eosinophils # (auto) 0 10 ^3/uL (0-0.8); Eosinophils % (auto) 0.1 % (0.0-7.0); Hemoglobin 7.6 g/dL (13.5-17.5)
[2023-12-09 15:12] LABS: Hematocrit 22.8 % (41.0-53.0); Lymphocytes # (auto) 1.1 10 ^3/uL (0.4-5.4); Lymphocytes % (auto) 7.6 % (10.0-50.0); Mean Corpuscular Hemoglobin 31.3 pg (28.0-32.0); Mean Corpuscular Hgb Conc. 33.4 g/dL (32.0-36.0); Mean Corpuscular Volume 93.8 fL (80.0-100.0); Monocytes # (auto) 1.7 10 ^3/uL (0-1.3); Monocytes % (auto) 11.8 % (0.0-12.0); Neutrophils # (auto) 11.6 10 ^3/uL (1.6-8.6); Neutrophils % (auto) 80.4 % (37.0-80.0); Nucleated Red Blood Cells % 0.3 %; Red Blood Cells 2.43 10^6/uL (4.5-5.90); Red Cell Distribution Width 17.1 % (11.8-14.3); White Blood Cell 14.4 10^3/uL (4.4-10.8)
[2023-12-09 15:20] LABS: Chloride 109 mmol/L (98-107); Potassium 4.3 mmol/L (3.5-5.1); Sodium 144 mmol/L (136-145)
[2023-12-09 15:21] LABS: Anion Gap 11 (5-15); Calcium 8.3 mg/dL (8.7-10.4); Carbon Dioxide 24 mmol/L (20-30)
[2023-12-09 15:25] LABS: INR 2.81 (0.9-1.15); Prothrombin Time 27.6 sec (9.3-11.8)
[2023-12-09 15:26] LABS: BUN/Creatinine Ratio 27.5 (10.0-20.0)
[2023-12-09 15:28] LABS: Blood Urea Nitrogen 49 mg/dL (9-23); Glucose 112 mg/dL (74-106)
[2023-12-09 15:55] LABS: Platelet Estimate Decreased
[2023-12-09 15:57] LABS: Anisocytosis Slight
[2023-12-09] MEDS: ACETAMINOPHEN 325 MG TAB PO PRN (16:55)
[2023-12-09] MEDS: SODIUM CHLORIDE 0.9% 1,000 ML IV SCH (19:45)
[2023-12-09 19:48] LABS: Chloride 107 mmol/L (98-107); Potassium 4.6 mmol/L (3.5-5.1); Sodium 145 mmol/L (136-145)
[2023-12-09 19:49] LABS: Anion Gap 14 (5-15); Calcium 8.5 mg/dL (8.7-10.4); Carbon Dioxide 24 mmol/L (20-30)
[2023-12-09 19:54] LABS: BUN/Creatinine Ratio 26.2 (10.0-20.0); Blood Urea Nitrogen 55 mg/dL (9-23); Glucose 130 mg/dL (74-106)
[2023-12-09 22:31] LABS: Hematocrit 21.6 % (41.0-53.0); Hemoglobin 7.4 g/dL (13.5-17.5)
[2023-12-10 05:03] LABS: Anion Gap 12 (5-15); Carbon Dioxide 24 mmol/L (20-30); Chloride 106 mmol/L (98-107); Potassium 4.7 mmol/L (3.5-5.1); Sodium 142 mmol/L (136-145)
[2023-12-10 05:04] LABS: Calcium 8.1 mg/dL (8.7-10.4)
[2023-12-10 05:09] LABS: BUN/Creatinine Ratio 24.2 (10.0-20.0); Blood Urea Nitrogen 60 mg/dL (9-23); Glucose 175 mg/dL (74-106)
[2023-12-10 05:10] LABS: Magnesium 1.6 mg/dL (1.6-2.6)
[2023-12-10 05:16] LABS: Hematocrit 21.2 % (41.0-53.0); Hemoglobin 7.3 g/dL (13.5-17.5)
[2023-12-10 08:16] VITALS: O2SAT 96
[2023-12-10] MEDS: LACTULOSE 20Gm/30ML SOLN NG SCH (09:27)
[2023-12-10] MEDS: LACTULOSE 20Gm/30ML SOLN PO ONE (10:35)
[2023-12-10] MEDS: phytonadione 10 MG in SODIUM CHL 0.9% 50 ML IV ONE (10:53)
[2023-12-10 14:22] LABS: Hematocrit 22.1 % (41.0-53.0); Hemoglobin 7.6 g/dL (13.5-17.5)
[2023-12-10 14:38] LABS: Chloride 107 mmol/L (98-107); Potassium 4.6 mmol/L (3.5-5.1); Sodium 142 mmol/L (136-145)
[2023-12-10 14:39] LABS: Anion Gap 10 (5-15); Carbon Dioxide 25 mmol/L (20-30)
[2023-12-10 14:40] LABS: Calcium 8.3 mg/dL (8.7-10.4)
[2023-12-10 14:44] LABS: Glucose 174 mg/dL (74-106)
[2023-12-10 14:46] LABS: Blood Urea Nitrogen 72 mg/dL (9-23)
[2023-12-10 19:30] VITALS: PULSE 99; RESP 24; O2SAT 99
[2023-12-10 21:58] LABS: Hemoglobin 7.3 g/dL (13.5-17.5)
[2023-12-10 22:00] LABS: Hematocrit 21.7 % (41.0-53.0)
[2023-12-10] MEDS ORDERED: LACTULOSE 20Gm/30ML SOLN PO SCH (22:00)
[2023-12-10 22:07] LABS: Chloride 108 mmol/L (98-107); Potassium 4.6 mmol/L (3.5-5.1); Sodium 142 mmol/L (136-145)
[2023-12-10 22:08] LABS: Anion Gap 9 (5-15); Carbon Dioxide 25 mmol/L (20-30)
[2023-12-10 22:14] LABS: BUN/Creatinine Ratio 23.5 (10.0-20.0); Blood Urea Nitrogen 76 mg/dL (9-23); Glucose 162 mg/dL (74-106)
[2023-12-11] VITALS (8 sets, daily range): BP systolic 121–133; BP diastolic 45–58; PULSE 73–84; RESP 15–18; TEMP 98.1–98.4; O2SAT 98
[2023-12-11] MEDS ORDERED: MIDODRINE HCL 10 MG TAB PO ONE (07:30)
[2023-12-11 07:45] LABS: Basophils # (auto) 0 10 ^3/uL (0-0.2); Eosinophils # (auto) 0 10 ^3/uL (0-0.8); Lymphocytes # (auto) 0.7 10 ^3/uL (0.4-5.4); Mean Corpuscular Hgb Conc. 34.2 g/dL (32.0-36.0); Mean Corpuscular Volume 94.8 fL (80.0-100.0); Monocytes # (auto) 0.4 10 ^3/uL (0-1.3); Neutrophils # (auto) 4.6 10 ^3/uL (1.6-8.6); White Blood Cell 5.7 10^3/uL (4.4-10.8)
[2023-12-11 07:49] LABS: Basophils % (auto) 0.1 % (0.0-2.0); Hematocrit 20.3 % (41.0-53.0); Lymphocytes % (auto) 12.2 % (10.0-50.0); Mean Corpuscular Hemoglobin 32.5 pg (28.0-32.0); Monocytes % (auto) 6.9 % (0.0-12.0); Neutrophils % (auto) 80.8 % (37.0-80.0); Nucleated Red Blood Cells % 0.6 %; Red Blood Cells 2.14 10^6/uL (4.5-5.90); Red Cell Distribution Width 17.5 % (11.8-14.3)
[2023-12-11 07:54] LABS: INR 2.38 (0.9-1.15); Partial Thromboplastin Time 38.6 SEC (24.5-34.5); Prothrombin Time 23.7 sec (9.3-11.8)
[2023-12-11 08:01] LABS: Albumin 2.7 g/dL (3.2-4.8); Alkaline Phosphatase 105 U/L (46-116); Anion Gap 10 (5-15); BUN/Creatinine Ratio 25.4 (10.0-20.0); Calcium 7.9 mg/dL (8.7-10.4); Carbon Dioxide 25 mmol/L (20-30); Chloride 107 mmol/L (98-107); Glucose 185 mg/dL (74-106); Potassium 4.5 mmol/L (3.5-5.1); Sodium 142 mmol/L (136-145); Total Protein 4.4 g/dL (5.7-8.2)
[2023-12-11 08:13] LABS: Aspartate Aminotransferase 1597 U/L (13-40)
[2023-12-11 08:15] LABS: Alanine Aminotransferase 2267 U/L (7-40)
[2023-12-11 08:16] LABS: Blood Urea Nitrogen 90 mg/dL (9-23)
[2023-12-11] MEDS: SODIUM CHL 0.9% 1000 ML BAG XX ONE (09:30)
[2023-12-11] MEDS: ALBUMIN 25% 100 ML IV ONE ×2 (09:30→18:15)
[2023-12-11 09:42] LABS: Hepatitis B Surface Antigen Negative (Negative)
[2023-12-11 10:03] LABS: Hepatitis A Ab IgM Negative; Hepatitis B Core IgM Negative
[2023-12-11 10:04] LABS: Hepatitis C Antibody Negative (Negative)
[2023-12-11] MEDS ORDERED: MIDODRINE HCL 10 MG TAB PO SCH (12:00)
[2023-12-11] MEDS: phytonadione 10 MG in SODIUM CHL 0.9% 50 ML IV ONE (12:12)
[2023-12-11 16:38] LABS: Basophils # (auto) 0 10 ^3/uL (0-0.2); Basophils % (auto) 0.1 % (0.0-2.0); Eosinophils # (auto) 0 10 ^3/uL (0-0.8); Eosinophils % (auto) 0.1 % (0.0-7.0); Hematocrit 25.3 % (41.0-53.0); Hemoglobin 8.6 g/dL (13.5-17.5); Lymphocytes # (auto) 0.5 10 ^3/uL (0.4-5.4); Lymphocytes % (auto) 8.7 % (10.0-50.0); Mean Corpuscular Hemoglobin 32.7 pg (28.0-32.0); Mean Corpuscular Hgb Conc. 33.8 g/dL (32.0-36.0); Mean Corpuscular Volume 96.7 fL (80.0-100.0); Monocytes # (auto) 0.5 10 ^3/uL (0-1.3); Monocytes % (auto) 8.2 % (0.0-12.0); Neutrophils # (auto) 5.1 10 ^3/uL (1.6-8.6); Neutrophils % (auto) 82.9 % (37.0-80.0); Nucleated Red Blood Cells % 0.2 %; Red Blood Cells 2.62 10^6/uL (4.5-5.90); Red Cell Distribution Width 16.3 % (11.8-14.3); White Blood Cell 6.1 10^3/uL (4.4-10.8)
[2023-12-11] MEDS: PANTOPRAZOLE 40 MG TAB PO SCH (17:00)
[2023-12-11 17:04] LABS: Anion Gap 11 (5-15); Calcium 8.2 mg/dL (8.7-10.4); Carbon Dioxide 22 mmol/L (20-30); Chloride 109 mmol/L (98-107); Potassium 4.5 mmol/L (3.5-5.1); Sodium 142 mmol/L (136-145)
[2023-12-11 17:10] LABS: Glucose 151 mg/dL (74-106)
[2023-12-11 17:16] LABS: Blood Urea Nitrogen 77 mg/dL (9-23)
[2023-12-11 17:25] LABS: Platelet Estimate Decreased
[2023-12-11 17:26] LABS: Anisocytosis Slight
[2023-12-11] MEDS: EPOETIN ALFA-EPBX 10,000 UNIT/1ML VIAL SC ONE (23:15)
[2023-12-12] VITALS (8 sets, daily range): BP systolic 102–145; BP diastolic 46–53; PULSE 65–70; RESP 18–20; TEMP 97.4–97.5; O2SAT 92–100
[2023-12-12 03:49] LABS: Basophils # (auto) 0 10 ^3/uL (0-0.2); Eosinophils # (auto) 0 10 ^3/uL (0-0.8); Lymphocytes # (auto) 0.6 10 ^3/uL (0.4-5.4); Neutrophils # (auto) 3.5 10 ^3/uL (1.6-8.6)
[2023-12-12 03:51] LABS: Basophils % (auto) 0.1 % (0.0-2.0); Eosinophils % (auto) 0.7 % (0.0-7.0); Hematocrit 23.9 % (41.0-53.0); Hemoglobin 8.2 g/dL (13.5-17.5); Mean Corpuscular Hemoglobin 32.8 pg (28.0-32.0); Mean Corpuscular Hgb Conc. 34.2 g/dL (32.0-36.0); Mean Corpuscular Volume 95.8 fL (80.0-100.0); Monocytes # (auto) 0.5 10 ^3/uL (0-1.3); Monocytes % (auto) 10.2 % (0.0-12.0); Nucleated Red Blood Cells % 0.5 %; White Blood Cell 4.6 10^3/uL (4.4-10.8)
[2023-12-12 04:00] LABS: Albumin 2.8 g/dL (3.2-4.8); Alkaline Phosphatase 101 U/L (46-116); Anion Gap 8 (5-15); BUN/Creatinine Ratio 21.3 (10.0-20.0); Carbon Dioxide 26 mmol/L (20-30); Chloride 108 mmol/L (98-107); Glucose 119 mg/dL (74-106); Potassium 4.3 mmol/L (3.5-5.1); Sodium 142 mmol/L (136-145); Total Protein 4.9 g/dL (5.7-8.2)
[2023-12-12 04:11] LABS: Aspartate Aminotransferase 974 U/L (13-40)
[2023-12-12 04:14] LABS: Alanine Aminotransferase 1913 U/L (7-40); Blood Urea Nitrogen 59 mg/dL (9-23)
[2023-12-12] MEDS: phytonadione 10 MG in SODIUM CHL 0.9% 50 ML IV ONE (10:20)
[2023-12-12] MEDS ORDERED: MIDAZOLAM HCL 2MG/2ML 2ml VIAL (1mg/ml) ONE (14:55)
[2023-12-12] MEDS ORDERED: PROPOFOL 10 MG/ML 20 ML IV ONE (15:14)
[2023-12-12] MEDS ORDERED: PANTOPRAZOLE 40 MG/10 ML VIAL INJ IV ONE (15:45)
[2023-12-12] MEDS: BUMETANIDE 2.5mg/10ml (0.25 mg/ml) INJ IV ONE (19:37)
[2023-12-12] MEDS: PANTOPRAZOLE 40 MG/10 ML VIAL INJ IV SCH (21:25)
[2023-12-12] MEDS: SUCRALFATE 1 GM/10 ML ORAL SUSP GT SCH (21:25)
[2023-12-13] VITALS (9 sets, daily range): BP systolic 111–146; BP diastolic 43–86; PULSE 61–89; RESP 18–20; TEMP 97.4–98.5; O2SAT 90–97
[2023-12-13] MEDS: BUMETANIDE 2.5mg/10ml (0.25 mg/ml) INJ IV SCH (05:38)
[2023-12-13 05:58] LABS: Basophils # (auto) 0 10 ^3/uL (0-0.2); Eosinophils # (auto) 0.2 10 ^3/uL (0-0.8); Hemoglobin 8.7 g/dL (13.5-17.5); Monocytes # (auto) 0.7 10 ^3/uL (0-1.3); White Blood Cell 5.2 10^3/uL (4.4-10.8)
[2023-12-13 06:00] LABS: Basophils % (auto) 0.2 % (0.0-2.0); Eosinophils % (auto) 3.3 % (0.0-7.0); Hematocrit 24.8 % (41.0-53.0); Lymphocytes # (auto) 0.7 10 ^3/uL (0.4-5.4); Lymphocytes % (auto) 13.8 % (10.0-50.0); Mean Corpuscular Hemoglobin 33.7 pg (28.0-32.0); Mean Corpuscular Hgb Conc. 35.2 g/dL (32.0-36.0); Mean Corpuscular Volume 95.5 fL (80.0-100.0); Monocytes % (auto) 13.5 % (0.0-12.0); Neutrophils # (auto) 3.6 10 ^3/uL (1.6-8.6); Neutrophils % (auto) 69.2 % (37.0-80.0); Nucleated Red Blood Cells % 0.5 %; Red Cell Distribution Width 17.1 % (11.8-14.3)
[2023-12-13 06:16] LABS: Albumin 2.8 g/dL (3.2-4.8); Alkaline Phosphatase 103 U/L (46-116); Anion Gap 10 (5-15); Aspartate Aminotransferase 542 U/L (13-40); BUN/Creatinine Ratio 25.6 (10.0-20.0); Bilirubin, Total 3.5 mg/dL (0.2-1.0); Carbon Dioxide 23 mmol/L (20-30); Chloride 103 mmol/L (98-107); Glucose 103 mg/dL (74-106); Potassium 4.2 mmol/L (3.5-5.1); Total Protein 4.7 g/dL (5.7-8.2)
[2023-12-13 06:27] LABS: Alanine Aminotransferase 1489 U/L (7-40); Sodium 136 mmol/L (136-145)
[2023-12-13 06:29] LABS: Blood Urea Nitrogen 90 mg/dL (9-23)
[2023-12-13] MEDS: SPIRONOLACTONE 25 MG TAB PO ONE (17:28)
[2023-12-13] MEDS: MELATONIN 5 MG TAB PO PRN (21:04)
[2023-12-13] MEDS ORDERED: TEMAZEPAM 15 MG CAP PO PRN (22:00)
[2023-12-14] VITALS (7 sets, daily range): BP systolic 110–124; BP diastolic 51–73; PULSE 59–84; RESP 16–20; TEMP 97.2–98.3; O2SAT 93–98
[2023-12-14] MEDS: SODIUM CHL 0.9% 1000 ML BAG XX ONE (07:00)
[2023-12-14 09:03] LABS: Basophils # (auto) 0 10 ^3/uL (0-0.2); Basophils % (auto) 0.1 % (0.0-2.0); Eosinophils # (auto) 0.3 10 ^3/uL (0-0.8); Eosinophils % (auto) 3.7 % (0.0-7.0); Hemoglobin 10.6 g/dL (13.5-17.5); Lymphocytes # (auto) 0.9 10 ^3/uL (0.4-5.4); Neutrophils # (auto) 5.3 10 ^3/uL (1.6-8.6); Neutrophils % (auto) 72.6 % (37.0-80.0); Nucleated Red Blood Cells % 0.2 %
[2023-12-14 09:05] LABS: Hematocrit 31.6 % (41.0-53.0); Lymphocytes % (auto) 11.9 % (10.0-50.0); Mean Corpuscular Hemoglobin 33.3 pg (28.0-32.0); Mean Corpuscular Hgb Conc. 33.7 g/dL (32.0-36.0); Mean Corpuscular Volume 98.8 fL (80.0-100.0); Monocytes # (auto) 0.9 10 ^3/uL (0-1.3); Monocytes % (auto) 11.7 % (0.0-12.0); Red Cell Distribution Width 18.3 % (11.8-14.3); White Blood Cell 7.4 10^3/uL (4.4-10.8)
[2023-12-14] MEDS: SPIRONOLACTONE 25 MG TAB PO SCH (09:18)
[2023-12-14 09:20] LABS: Albumin 3.1 g/dL (3.2-4.8); Alkaline Phosphatase 115 U/L (46-116); Anion Gap 18 (5-15); Aspartate Aminotransferase 325 U/L (13-40); BUN/Creatinine Ratio 21.5 (10.0-20.0); Bilirubin, Total 5.3 mg/dL (0.2-1.0); Calcium 7.9 mg/dL (8.7-10.4); Carbon Dioxide 14 mmol/L (20-30); Chloride 101 mmol/L (98-107); Glucose 133 mg/dL (74-106); Potassium 4.2 mmol/L (3.5-5.1); Sodium 133 mmol/L (136-145); Total Protein 5.5 g/dL (5.7-8.2)
[2023-12-14 09:57] LABS: Alanine Aminotransferase 1274 U/L (7-40); Blood Urea Nitrogen 87 mg/dL (9-23)
[2023-12-14] MEDS: IRON SUCROSE COMPLEX 100 ML IV SCH (15:14)
[2023-12-14] MEDS: ALBUMIN 25% 100 ML IV PRN (15:33)
[2023-12-14] MEDS: EPOETIN ALFA-EPBX 10,000 UNIT/1ML VIAL SC ONE (20:58)
[2023-12-15] VITALS (7 sets, daily range): BP systolic 110–131; BP diastolic 53–72; PULSE 59–79; RESP 16–18; TEMP 97.5–98.7; O2SAT 93–96
[2023-12-15 06:43] LABS: Basophils # (auto) 0 10 ^3/uL (0-0.2); Basophils % (auto) 0.1 % (0.0-2.0); Eosinophils # (auto) 0.1 10 ^3/uL (0-0.8); Hemoglobin 8.2 g/dL (13.5-17.5); Monocytes # (auto) 0.6 10 ^3/uL (0-1.3); Neutrophils # (auto) 2.7 10 ^3/uL (1.6-8.6); Red Blood Cells 2.44 10^6/uL (4.5-5.90)
[2023-12-15 06:46] LABS: Eosinophils % (auto) 2.5 % (0.0-7.0); Hematocrit 23.5 % (41.0-53.0); Lymphocytes # (auto) 0.7 10 ^3/uL (0.4-5.4); Lymphocytes % (auto) 16.4 % (10.0-50.0); Mean Corpuscular Hemoglobin 33.7 pg (28.0-32.0); Mean Corpuscular Volume 96.5 fL (80.0-100.0); Monocytes % (auto) 14.9 % (0.0-12.0); Neutrophils % (auto) 66.1 % (37.0-80.0); Nucleated Red Blood Cells % 0.3 %; Red Cell Distribution Width 18.4 % (11.8-14.3); White Blood Cell 4.1 10^3/uL (4.4-10.8)
[2023-12-15 07:07] LABS: Alanine Aminotransferase 718 U/L (7-40); Alkaline Phosphatase 83 U/L (46-116); Anion Gap 9 (5-15); BUN/Creatinine Ratio 18.8 (10.0-20.0); Calcium 7.9 mg/dL (8.7-10.4); Carbon Dioxide 24 mmol/L (20-30); Chloride 102 mmol/L (98-107); Glucose 128 mg/dL (74-106); Magnesium 1.6 mg/dL (1.6-2.6); Potassium 3.5 mmol/L (3.5-5.1); Sodium 135 mmol/L (136-145)
[2023-12-15 07:08] LABS: Aspartate Aminotransferase 153 U/L (13-40); Bilirubin, Total 6.1 mg/dL (0.2-1.0); Total Protein 4.8 g/dL (5.7-8.2)
[2023-12-15 07:15] LABS: Blood Urea Nitrogen 65 mg/dL (9-23)
[2023-12-15 09:47] LABS: INR 1.91 (0.9-1.15); Partial Thromboplastin Time 43.9 SEC (24.5-34.5); Prothrombin Time 19.3 sec (9.3-11.8)
[2023-12-15] MEDS: PROPRANOLOL HCL 20 MG TAB PO SCH (12:50)
[2023-12-15] MEDS: ALBUMIN 25% 100 ML IV SCH (12:58)
[2023-12-15 13:13] LABS: Body Fluid Red Blood Cells 700 CUMM (0-2000); Body Fluid White Blood Cells 43 CUMM (0-200)
[2023-12-15 13:17] LABS: Body Fluid Polymorphonuclear 5 % (0-25)
[2023-12-16] VITALS (12 sets, daily range): BP systolic 100–152; BP diastolic 47–66; PULSE 51–66; RESP 12–20; TEMP 97.7–98.3; O2SAT 94–96
[2023-12-16 07:37] LABS: Basophils # (auto) 0 10 ^3/uL (0-0.2); Basophils % (auto) 0.2 % (0.0-2.0); Eosinophils # (auto) 0.1 10 ^3/uL (0-0.8); White Blood Cell 4.2 10^3/uL (4.4-10.8)
[2023-12-16 07:40] LABS: Eosinophils % (auto) 1.7 % (0.0-7.0); Hematocrit 23.3 % (41.0-53.0); Hemoglobin 8.1 g/dL (13.5-17.5); Lymphocytes # (auto) 0.6 10 ^3/uL (0.4-5.4); Lymphocytes % (auto) 14.7 % (10.0-50.0); Mean Corpuscular Hemoglobin 33.9 pg (28.0-32.0); Mean Corpuscular Hgb Conc. 34.5 g/dL (32.0-36.0); Mean Corpuscular Volume 98.3 fL (80.0-100.0); Monocytes # (auto) 0.5 10 ^3/uL (0-1.3); Monocytes % (auto) 12.4 % (0.0-12.0); Nucleated Red Blood Cells % 0.3 %; Red Blood Cells 2.38 10^6/uL (4.5-5.90); Red Cell Distribution Width 18.9 % (11.8-14.3)
[2023-12-16 07:51] LABS: Alanine Aminotransferase 435 U/L (7-40); Albumin 3.5 g/dL (3.2-4.8); Alkaline Phosphatase 70 U/L (46-116); Anion Gap 14 (5-15); BUN/Creatinine Ratio 17.9 (10.0-20.0); Bilirubin, Total 6.6 mg/dL (0.2-1.0); Blood Urea Nitrogen 69 mg/dL (9-23); Calcium 8.3 mg/dL (8.7-10.4); Carbon Dioxide 22 mmol/L (20-30); Chloride 100 mmol/L (98-107); Glucose 110 mg/dL (74-106); Potassium 3.4 mmol/L (3.5-5.1); Sodium 136 mmol/L (136-145); Total Protein 5.4 g/dL (5.7-8.2)
[2023-12-16 07:54] LABS: Aspartate Aminotransferase 86 U/L (13-40)
[2023-12-16] MEDS: MIDAZOLAM HCL 2MG/2ML 2ml VIAL (1mg/ml) ONE (08:19)
[2023-12-16] MEDS: fentaNYL CITRATE 100 MCG/2 ML VL ONE (08:19)
[2023-12-16] MEDS: ceFAZolin 1GM/50ML 50 ML IV ONE (08:57)
[2023-12-16] MEDS: HEPARIN SODIUM (PORCINE) 5000 UNITS/ML 1ML VIAL ONE (08:57)
[2023-12-16] MEDS: LIDOCAINE 2%HCL (LOCAL ANESTH.) INJ 20ML MDV ONE (08:57)
[2023-12-16] MEDS: HEPARIN IN NS 1000Units/500mL 1,500 ML ONE (09:32)
[2023-12-16] MEDS: IODIXANOL 320MG/ML 100ML BTL IV ONE (09:32)
[2023-12-16] MEDS: HEPARIN 1,000 UNITS/ml 1ML VIAL IV ONE (09:45)
[2023-12-16] MEDS: SPIRONOLACTONE 25 MG TAB PO SCH (13:43)
[2023-12-16] MEDS: BUMETANIDE 1 MG TAB PO SCH (13:44)
[2023-12-16] MEDS: POTASSIUM EFFERVESENT TAB 25 MEQ PO ONE (13:45)
[2023-12-16 14:06] LABS: Protein, Body Fluid 0.8 g/dL (.)
[2023-12-16] MEDS: EPOETIN ALFA-EPBX 10,000 UNIT/1ML VIAL SC ONE (21:29)
[2023-12-17] VITALS (8 sets, daily range): BP systolic 112–138; BP diastolic 48–73; PULSE 53–61; RESP 16–20; TEMP 97.8–98.4; O2SAT 95–97
[2023-12-17 06:03] LABS: Chloride 103 mmol/L (98-107); Potassium 4.3 mmol/L (3.5-5.1); Sodium 138 mmol/L (136-145)
[2023-12-17 06:04] LABS: Anion Gap 11 (5-15); Carbon Dioxide 24 mmol/L (20-30); Hematocrit 26.5 % (41.0-53.0); Hemoglobin 9.1 g/dL (13.5-17.5)
[2023-12-17 06:05] LABS: Calcium 8.5 mg/dL (8.7-10.4)
[2023-12-17 06:09] LABS: BUN/Creatinine Ratio 10.7 (10.0-20.0); Glucose 109 mg/dL (74-106)
[2023-12-17 06:23] LABS: Blood Urea Nitrogen 32 mg/dL (9-23)
[2023-12-18] VITALS (8 sets, daily range): BP systolic 118–145; BP diastolic 58–71; PULSE 54–62; RESP 14–20; TEMP 97.5–97.9; O2SAT 95–97
[2023-12-18 10:27] LABS: Basophils # (auto) 0 10 ^3/uL (0-0.2); Eosinophils # (auto) 0.1 10 ^3/uL (0-0.8)
[2023-12-18 10:29] LABS: Basophils % (auto) 0.6 % (0.0-2.0); Eosinophils % (auto) 1.1 % (0.0-7.0); Hematocrit 28.7 % (41.0-53.0); Hemoglobin 9.6 g/dL (13.5-17.5); Lymphocytes # (auto) 1.1 10 ^3/uL (0.4-5.4); Lymphocytes % (auto) 15.1 % (10.0-50.0); Mean Corpuscular Hemoglobin 33.9 pg (28.0-32.0); Mean Corpuscular Hgb Conc. 33.6 g/dL (32.0-36.0); Mean Corpuscular Volume 101.1 fL (80.0-100.0); Monocytes # (auto) 0.7 10 ^3/uL (0-1.3); Monocytes % (auto) 9.7 % (0.0-12.0); Neutrophils # (auto) 5.1 10 ^3/uL (1.6-8.6); Neutrophils % (auto) 73.5 % (37.0-80.0); Nucleated Red Blood Cells % 0.2 %; Red Blood Cells 2.83 10^6/uL (4.5-5.90)
[2023-12-18 10:43] LABS: Alanine Aminotransferase 268 U/L (7-40); Alkaline Phosphatase 84 U/L (46-116); Anion Gap 8 (5-15); Aspartate Aminotransferase 77 U/L (13-40); Bilirubin, Total 9.1 mg/dL (0.2-1.0); Blood Urea Nitrogen 38 mg/dL (9-23); Calcium 8.7 mg/dL (8.7-10.4); Carbon Dioxide 23 mmol/L (20-30); Chloride 103 mmol/L (98-107); Glucose 152 mg/dL (74-106); Potassium 4.3 mmol/L (3.5-5.1); Sodium 134 mmol/L (136-145); Total Protein 5.3 g/dL (5.7-8.2)
[2023-12-18 10:46] LABS: BUN/Creatinine Ratio 10.1 (10.0-20.0)
[2023-12-19] VITALS (9 sets, daily range): BP systolic 128–158; BP diastolic 2–74; PULSE 55–61; RESP 16–20; TEMP 97.4–98.1; O2SAT 95–98
[2023-12-19 13:48] LABS: Carbon Dioxide 20 mmol/L (20-30)
[2023-12-19 13:54] LABS: Blood Urea Nitrogen 42 mg/dL (9-23); Glucose 138 mg/dL (74-106)
[2023-12-19 13:57] LABS: Anion Gap 14 (5-15); Chloride 98 mmol/L (98-107); Potassium 4.5 mmol/L (3.5-5.1); Sodium 132 mmol/L (136-145)
[2023-12-19 14:08] LABS: BUN/Creatinine Ratio 9.6 (10.0-20.0)
[2023-12-20] VITALS (8 sets, daily range): BP systolic 116–143; BP diastolic 49–70; PULSE 59–74; RESP 14–18; TEMP 97.3–98; O2SAT 91–98
[2023-12-20] MEDS: SODIUM CHL 0.9% 1000 ML BAG XX ONE (07:00)
[2023-12-20 10:20] LABS: Basophils # (auto) 0 10 ^3/uL (0-0.2); Basophils % (auto) 0.3 % (0.0-2.0); Eosinophils # (auto) 0 10 ^3/uL (0-0.8); Eosinophils % (auto) 0.6 % (0.0-7.0); Hematocrit 27.8 % (41.0-53.0); Hemoglobin 9.4 g/dL (13.5-17.5); Lymphocytes # (auto) 0.7 10 ^3/uL (0.4-5.4); Lymphocytes % (auto) 9.1 % (10.0-50.0); Monocytes # (auto) 0.6 10 ^3/uL (0-1.3); Neutrophils # (auto) 6.1 10 ^3/uL (1.6-8.6); Nucleated Red Blood Cells % 0.1 %; Red Blood Cells 2.78 10^6/uL (4.5-5.90); Red Cell Distribution Width 23.6 % (11.8-14.3); White Blood Cell 7.4 10^3/uL (4.4-10.8)
[2023-12-20 10:29] LABS: Chloride 103 mmol/L (98-107); Potassium 3.7 mmol/L (3.5-5.1); Sodium 140 mmol/L (136-145)
[2023-12-20 10:30] LABS: Anion Gap 9 (5-15); Calcium 9.4 mg/dL (8.7-10.4); Carbon Dioxide 28 mmol/L (20-30)
[2023-12-20 10:35] LABS: Glucose 95 mg/dL (74-106)
[2023-12-20 10:37] LABS: Blood Urea Nitrogen 24 mg/dL (9-23)
[2023-12-20 11:01] LABS: BUN/Creatinine Ratio 11.9 (10.0-20.0)
[2023-12-20] MEDS: URSODIOL 300 MG CAP PO SCH (22:00)
[2023-12-20] MEDS: EPOETIN ALFA-EPBX 10,000 UNIT/1ML VIAL SC ONE (22:02)
[2023-12-21] VITALS (7 sets, daily range): BP systolic 114–151; BP diastolic 46–60; PULSE 58–93; RESP 16–20; TEMP 97.5–98.1; O2SAT 93–97
[2023-12-21 06:44] LABS: Chloride 101 mmol/L (98-107); Potassium 4.2 mmol/L (3.5-5.1); Sodium 138 mmol/L (136-145)
[2023-12-21 06:45] LABS: Anion Gap 13 (5-15); Carbon Dioxide 24 mmol/L (20-30)
[2023-12-21 06:50] LABS: Blood Urea Nitrogen 31 mg/dL (9-23); Glucose 112 mg/dL (74-106)
[2023-12-21 06:54] LABS: BUN/Creatinine Ratio 7.5 (10.0-20.0)
[2023-12-21] MEDS: SODIUM CHL 0.9% 1000 ML BAG XX ONE (12:30)
[2023-12-21 14:10] LABS: Hemoglobin 9.4 g/dL (13.5-17.5)
[2023-12-21 14:11] LABS: Hematocrit 27.9 % (41.0-53.0)
[2023-12-21] MEDS: EPOETIN ALFA-EPBX 10,000 UNIT/1ML VIAL SC ONE (22:20)
[2023-12-22] VITALS (8 sets, daily range): BP systolic 113–129; BP diastolic 52–64; PULSE 54–83; RESP 16–18; TEMP 97.5–98; O2SAT 96–99
[2023-12-22 10:37] LABS: Potassium 3.9 mmol/L (3.5-5.1)
[2023-12-22 10:38] LABS: Calcium 9.3 mg/dL (8.7-10.4)
[2023-12-22 10:45] LABS: Albumin 3.8 g/dL (3.2-4.8)
[2023-12-22 10:46] LABS: Phosphorus 3.6 mg/dL (2.4-5.1)
[2023-12-22 12:07] LABS: BUN/Creatinine Ratio 5.4 (10.0-20.0); Basophils # (auto) 0 10 ^3/uL (0-0.2); Basophils % (auto) 0.6 % (0.0-2.0); Eosinophils # (auto) 0.1 10 ^3/uL (0-0.8); Hemoglobin 9.3 g/dL (13.5-17.5); Monocytes # (auto) 0.5 10 ^3/uL (0-1.3)
[2023-12-22 12:18] LABS: Albumin 3.8 g/dL (3.2-4.8); Bilirubin, Direct 7.9 mg/dL (<0.3)
[2023-12-22 12:19] LABS: Bilirubin, Total 12.5 mg/dL (0.2-1.0)
[2023-12-22 12:24] LABS: Eosinophils % (auto) 0.9 % (0.0-7.0); Hematocrit 28.9 % (41.0-53.0); Lymphocytes # (auto) 0.7 10 ^3/uL (0.4-5.4); Mean Corpuscular Hgb Conc. 32.3 g/dL (32.0-36.0); Mean Corpuscular Volume 105.3 fL (80.0-100.0); Monocytes % (auto) 7.4 % (0.0-12.0); Neutrophils # (auto) 4.9 10 ^3/uL (1.6-8.6); Neutrophils % (auto) 80.1 % (37.0-80.0); Red Blood Cells 2.74 10^6/uL (4.5-5.90); White Blood Cell 6.2 10^3/uL (4.4-10.8)
[2023-12-22 17:04] LABS: INR 2.02 (0.9-1.15); Prothrombin Time 20.3 sec (9.3-11.8)
[2023-12-22] MEDS: CARVEDILOL 3.125 MG TAB PO SCH (21:24)
[2023-12-22] MEDS: PHYTONADIONE (VIT K)10 MG/ML 1ML VIAL SUBCUT ONE (22:33)
[2023-12-23] VITALS (8 sets, daily range): BP systolic 98–122; BP diastolic 44–71; PULSE 54–72; RESP 16–20; TEMP 96.9–98.6; O2SAT 95–98
[2023-12-23 06:52] LABS: INR 2.12 (0.9-1.15); Prothrombin Time 21.3 sec (9.3-11.8)
[2023-12-23 06:55] LABS: Alanine Aminotransferase 101 U/L (7-40); Albumin 3.4 g/dL (3.2-4.8); Alkaline Phosphatase 83 U/L (46-116); Anion Gap 11 (5-15); Aspartate Aminotransferase 58 U/L (13-40); Bilirubin, Total 12.3 mg/dL (0.2-1.0); Blood Urea Nitrogen 23 mg/dL (9-23); Calcium 9.3 mg/dL (8.7-10.4); Carbon Dioxide 24 mmol/L (20-30); Chloride 102 mmol/L (98-107); Glucose 124 mg/dL (74-106); Potassium 3.8 mmol/L (3.5-5.1); Sodium 137 mmol/L (136-145)
[2023-12-23 06:56] LABS: Total Protein 5.7 g/dL (5.7-8.2)
[2023-12-23 06:59] LABS: BUN/Creatinine Ratio 5.6 (10.0-20.0)
[2023-12-23] MEDS: FUROSEMIDE 40 MG TAB PO ONE (13:30)
[2023-12-23] MEDS: FUROSEMIDE 40 MG TAB PO SCH (19:16)
[2023-12-23] MEDS: LACTULOSE 20Gm/30ML SOLN PO SCH (21:31)
[2023-12-24] VITALS (9 sets, daily range): BP systolic 86–120; BP diastolic 40–57; PULSE 57–96; RESP 16–20; TEMP 97.3–98; O2SAT 92–97
[2023-12-24 11:48] LABS: INR 2.05 (0.9-1.15); Partial Thromboplastin Time 50.7 SEC (24.5-34.5); Prothrombin Time 20.6 sec (9.3-11.8)
[2023-12-24 14:05] LABS: Chloride 99 mmol/L (98-107); Sodium 134 mmol/L (136-145)
[2023-12-24 14:09] LABS: Anion Gap 13 (5-15); Calcium 9.3 mg/dL (8.7-10.4); Carbon Dioxide 22 mmol/L (20-30)
[2023-12-24 14:11] LABS: Potassium 3.7 mmol/L (3.5-5.1)
[2023-12-24 14:13] LABS: Alkaline Phosphatase 84 U/L (46-116)
[2023-12-24 14:14] LABS: Glucose 204 mg/dL (74-106)
[2023-12-24 14:16] LABS: Albumin 3.3 g/dL (3.2-4.8); Aspartate Aminotransferase 57 U/L (13-40); Bilirubin, Total 11.5 mg/dL (0.2-1.0); Total Protein 5.5 g/dL (5.7-8.2)
[2023-12-24 14:18] LABS: Alanine Aminotransferase 85 U/L (7-40); BUN/Creatinine Ratio 6.3 (10.0-20.0); Blood Urea Nitrogen 33 mg/dL (9-23)
== END 2023-12-25 00:44 | disposition short-term general hospital (02) | DRG 720 ==
LOC: ER 11:40 → OVERFLOW 16:22 → TELE 18:11 → WEST WING 12-12 11:22 → TELE-WESTW 12-13 19:45
PROVIDERS: ADMIT Internal Medicine Geriatric Medicine; ATTEND Internal Medicine Geriatric Medicine
PROC: 30233K1 Transfusion of Nonautologous Frozen Plasma into Peripheral Vein, Percutaneous Approach (ICD-10-PCS; 2023-12-08)
PROC: 30233N1 Transfusion of Nonautologous Red Blood Cells into Peripheral Vein, Percutaneous Approach (ICD-10-PCS; 2023-12-08)
PROC: 30233R1 Transfusion of Nonautologous Platelets into Peripheral Vein, Percutaneous Approach (ICD-10-PCS; 2023-12-09)
PROC: 5A1D70Z Performance of Urinary Filtration, Intermittent, Less than 6 Hours Per Day (ICD-10-PCS; 2023-12-09)
PROC: 5A1D70Z Performance of Urinary Filtration, Intermittent, Less than 6 Hours Per Day (ICD-10-PCS; 2023-12-11)
PROC: 0DB68ZX Excision of Stomach, Via Natural or Artificial Opening Endoscopic, Diagnostic (ICD-10-PCS; 2023-12-12)
PROC: 0DB98ZX Excision of Duodenum, Via Natural or Artificial Opening Endoscopic, Diagnostic (ICD-10-PCS; principal; 2023-12-12 14:48)
PROC: 5A1D70Z Performance of Urinary Filtration, Intermittent, Less than 6 Hours Per Day (ICD-10-PCS; 2023-12-14)
PROC: 0W9G3ZZ Drainage of Peritoneal Cavity, Percutaneous Approach (ICD-10-PCS; 2023-12-15)
PROC: 5A1D70Z Performance of Urinary Filtration, Intermittent, Less than 6 Hours Per Day (ICD-10-PCS; 2023-12-16)
PROC: 0JH63XZ Insertion of Tunneled Vascular Access Device into Chest Subcutaneous Tissue and Fascia, Percutaneous Approach (ICD-10-PCS; 2023-12-16)
PROC: 02HV33Z Insertion of Infusion Device into Superior Vena Cava, Percutaneous Approach (ICD-10-PCS; 2023-12-16)
PROC: B5181ZA Fluoroscopy of Superior Vena Cava using Low Osmolar Contrast, Guidance (ICD-10-PCS; 2023-12-16)
PROC: B548ZZA Ultrasonography of Superior Vena Cava, Guidance (ICD-10-PCS; 2023-12-16)
PROC: 5A1D70Z Performance of Urinary Filtration, Intermittent, Less than 6 Hours Per Day (ICD-10-PCS; 2023-12-20)
PROC: 05HF33Z Insertion of Infusion Device into Left Cephalic Vein, Percutaneous Approach (ICD-10-PCS; 2023-12-21)
PROC: B54NZZA Ultrasonography of Left Upper Extremity Veins, Guidance (ICD-10-PCS; 2023-12-21)
PROC: 5A1D70Z Performance of Urinary Filtration, Intermittent, Less than 6 Hours Per Day (ICD-10-PCS; 2023-12-21)
PROC: 5A1D70Z Performance of Urinary Filtration, Intermittent, Less than 6 Hours Per Day (ICD-10-PCS; 2023-12-24)
DX: A41.9 Sepsis, unspecified organism (principal); K76.7 Hepatorenal syndrome; N17.0 Acute kidney failure with tubular necrosis; G93.41 Metabolic encephalopathy; K22.11 Ulcer of esophagus with bleeding; R57.1 Hypovolemic shock; R65.21 Severe sepsis with septic shock; I85.11 Secondary esophageal varices with bleeding; K65.2 Spontaneous bacterial peritonitis; D68.9 Coagulation defect, unspecified; I12.0 Hypertensive chronic kidney disease with stage 5 chronic kidney disease or end stage renal disease; N18.6 End stage renal disease; E87.5 Hyperkalemia; E87.20 Acidosis, unspecified; I47.20 Ventricular tachycardia, unspecified; K70.31 Alcoholic cirrhosis of liver with ascites; E87.1 Hypo-osmolality and hyponatremia; N28.1 Cyst of kidney, acquired; D53.9 Nutritional anemia, unspecified; I48.91 Unspecified atrial fibrillation; K31.9 Disease of stomach and duodenum, unspecified; K44.9 Diaphragmatic hernia without obstruction or gangrene; K76.6 Portal hypertension; D69.59 Other secondary thrombocytopenia; F17.210 Nicotine dependence, cigarettes, uncomplicated; E87.6 Hypokalemia; R74.01 Elevation of levels of liver transaminase levels; K80.20 Calculus of gallbladder without cholecystitis without obstruction; K76.82 Hepatic encephalopathy; I16.0 Hypertensive urgency; E86.1 Hypovolemia; K72.10 Chronic hepatic failure without coma; Z88.0 Allergy status to penicillin; Z99.2 Dependence on renal dialysis; Z83.3 Family history of diabetes mellitus; Z80.9 Family history of malignant neoplasm, unspecified
CPT/HCPCS: 36415; 36558; 36600; 49083; 71045; 76705; 76775; 76942; 77001; 80048; 80053; 80069; 80074; 80076; 80307; 81001; 82140; 82550; 82570; 82728; 82805; 82962; 83036; 83540; 83550; 83605; 83615; 83735; 83880; 83986; 84100; 84132; 84156; 84300; 84443; 84484; 85007; 85014; 85018; 85025; 85027; 85045; 85610; 85730; 86850; 86900; 86901; 86920; 87040; 87086; 87205; 89051; 90935; 93005; 93306; 93971; 94640; 94644; 96361; 96365; 96366; 96375; 97110; 97116; 97530; 99152; 99291; C1894; G0378; J1642; J1756; J1815; J2001; J2250; J2405; J2470; J2704; J3430; J3490; J7060; P9047; Q9967

== ENCOUNTER 2024-01-26 08:18 | Inpatient (IN) | payer MEDICARE, MEDICAID ==
[2024-01-26] VITALS (47 sets, daily range): BP systolic 89–180; BP diastolic 39–76; PULSE 54–80; RESP 11–27; TEMP 96.8–98.2; O2SAT 97–100
[~2024-01-26] VITALS: Ht 165.1 cm; Wt 62.1 kg
[2024-01-26] MEDS: NALOXONE HCL 1MG/ML 2ML SYRINGE IV ONE (08:22)
[2024-01-26] MEDS: LORazepam 2MG/ML-1ML VIAL IV ONE (08:24)
[2024-01-26] MEDS: NALOXONE HCL 1MG/ML 2ML SYRINGE ONE (08:25)
[2024-01-26] MEDS: LORazepam 2MG/ML-1ML VIAL ONE (08:26)
[2024-01-26] MEDS: MIDAZOLAM DRIP 50 mg/50mL 50 ML IV ONE (08:30)
[2024-01-26] MEDS: MIDAZOLAM DRIP 50 mg/50mL 50 ML IV SCH (08:45)
[2024-01-26 09:24] LABS: Basophils # (auto) 0 10 ^3/uL (0-0.2); Eosinophils # (auto) 0 10 ^3/uL (0-0.8); Mean Corpuscular Volume 106.3 fL (80.0-100.0); Monocytes # (auto) 0.6 10 ^3/uL (0-1.3); Neutrophils # (auto) 2.5 10 ^3/uL (1.6-8.6); Platelet Count (auto) 67 10^3/uL (140-450)
[2024-01-26 09:25] LABS: Basophils % (auto) 0.8 % (0.0-2.0); Hematocrit 30.7 % (41.0-53.0); Hemoglobin 10.3 g/dL (13.5-17.5); Lymphocytes # (auto) 1.9 10 ^3/uL (0.4-5.4); Lymphocytes % (auto) 37.4 % (10.0-50.0); Mean Corpuscular Hemoglobin 35.7 pg (28.0-32.0); Mean Corpuscular Hgb Conc. 33.6 g/dL (32.0-36.0); Monocytes % (auto) 12.4 % (0.0-12.0); Neutrophils % (auto) 49.4 % (37.0-80.0); Nucleated Red Blood Cells % 0.6 %; Red Blood Cells 2.89 10^6/uL (4.5-5.90)
[2024-01-26 09:26] LABS: Red Cell Distribution Width 20.2 % (11.8-14.3)
[2024-01-26 09:36] LABS: Alanine Aminotransferase 101 U/L (7-40); Albumin 2.9 g/dL (3.2-4.8); Alkaline Phosphatase 223 U/L (46-116); Anion Gap 10 (5-15); Aspartate Aminotransferase 111 U/L (13-40); BUN/Creatinine Ratio 9.5 (10.0-20.0); Bilirubin, Total 3.9 mg/dL (0.2-1.0); Blood Alcohol < 3.0 mg/dL (<10); Blood Urea Nitrogen 46 mg/dL (9-23); Calcium 9.3 mg/dL (8.7-10.4); Carbon Dioxide 25 mmol/L (20-30); Chloride 95 mmol/L (98-107); Glucose 177 mg/dL (74-106); Magnesium 2.4 mg/dL (1.6-2.6); Potassium 3.8 mmol/L (3.5-5.1); Sodium 130 mmol/L (136-145); Total Protein 6.2 g/dL (5.7-8.2)
[2024-01-26 09:39] LABS: Lactic Acid w/Reflex 4.6 mmol/L (0.4-2.0)
[2024-01-26 09:44] LABS: INR 1.43 (0.9-1.15); Prothrombin Time 14.8 sec (9.3-11.8)
[2024-01-26] MEDS: SODIUM CHLORIDE 0.9% 500 ML IVB ONE (09:49)
[2024-01-26 10:14] LABS: Base Excess 1.2 mmol/L (-2.0-3.0)
[2024-01-26] MEDS: SODIUM CHLORIDE 0.9% 1,000 ML IV ONE (10:22)
[2024-01-26] MEDS ORDERED: NITROGLYCERIN 0.4 MG SL TAB SL PRN ×2 (13:00)
[2024-01-26] MEDS ORDERED: ONDANSETRON HCL 4 MG/2 ML VIAL IV PRN (13:00)
[2024-01-26] MEDS: LACTULOSE 10g/15ml SOLN 473ML PR ONE (13:00)
[2024-01-26] MEDS ORDERED: VANCOMYCIN PER PHARMACY 0 MG IV SCH (13:00)
[2024-01-26 13:17] LABS: Urine Bacteria None Seen /hpf (None Seen)
[2024-01-26] MEDS ORDERED: CEFEPIME 2GM/50ML 50 ML IV ONE (13:30)
[2024-01-26 13:54] LABS: Urine Blood Negative /uL (Negative); Urine Clarity Turbid (Clear); Urine Color Dark-Yellow (Yellow); Urine Hyaline Cast MANY /lpf (0 - 2); Urine Mucus FEW (None Seen); Urine Protein, UAD 1+ (Negative); Urine Specific Gravity 1.023 (1.001-1.035); Urine Urobilinogen 3 mg/dL (Negative); Urine WBC 7 /hpf (0 - 3)
[2024-01-26] MEDS: PANTOPRAZOLE 40 MG/10 ML VIAL INJ IV ONE (14:09)
[2024-01-26 14:14] LABS: INR 1.49 (0.9-1.15); Prothrombin Time 15.3 sec (9.3-11.8)
[2024-01-26 14:19] LABS: % Iron Saturation 46.1 % (20-55)
[2024-01-26 15:14] LABS: COVID19 ANTIGEN SOFIA FIA NEGATIVE (NEGATIVE); Rapid Influenza A Negative (Negative); Rapid Influenza B Negative (Negative)
[2024-01-26] MEDS: CEFEPIME 2GM/50ML 50 ML IV ONE (15:39)
[2024-01-26] MEDS: fentaNYL Drip 2500mCg/250mlNS 250 ML IV SCH (15:43)
[2024-01-26] MEDS: SODIUM CHLORIDE 0.9% 500 ML IV ONE (15:45)
[2024-01-26] MEDS: PROPOFOL 100 ML IV SCH (15:49)
[2024-01-26] MEDS: ALBUMIN 25% 50 ML IV SCH (17:45)
[2024-01-26] MEDS: ALBUMIN 25% 100 ML IV ONE (17:52)
[2024-01-26] MEDS ORDERED: LACTULOSE 10g/15ml SOLN 473ML PR SCH (18:00)
[2024-01-26] MEDS: HYDROCORTISONE SOD SUCC 100 MG/2ML INJ VIAL IV SCH (18:40)
[2024-01-26] MEDS: LACTULOSE 20Gm/30ML SOLN NG SCH (18:40)
[2024-01-26 19:27] LABS: Base Excess -1.3 mmol/L (-2.0-3.0)
[2024-01-26] MEDS: VANCOMYCIN 1.25GM/250ML 250 ML IV ONE (20:32)
[2024-01-26 21:20] LABS: Body Fluid Polymorphonuclear 4 % (0-25); Body Fluid Red Blood Cells 470 CUMM (0-2000); Body Fluid White Blood Cells 43 CUMM (0-200)
[2024-01-26] MEDS: PANTOPRAZOLE 40 MG/10 ML VIAL INJ IV SCH (21:55)
[2024-01-26] MEDS: rifAXIMin 550 MG TAB NG SCH (22:00)
[2024-01-26] MEDS: NOREPINEPHRINE 8 MG/250ML KIT 250 ML IV SCH (22:20)
[2024-01-27] VITALS (105 sets, daily range): BP systolic 85–139; BP diastolic 42–60; PULSE 51–93; RESP 12–19; TEMP 96.3–98.1; O2SAT 96–100
[2024-01-27 04:32] LABS: Basophils # (auto) 0 10 ^3/uL (0-0.2); Basophils % (auto) 0.3 % (0.0-2.0); Eosinophils # (auto) 0 10 ^3/uL (0-0.8); Lymphocytes # (auto) 1.4 10 ^3/uL (0.4-5.4); Monocytes # (auto) 0.1 10 ^3/uL (0-1.3); Neutrophils # (auto) 2.7 10 ^3/uL (1.6-8.6); Nucleated Red Blood Cells % 0.2 %; White Blood Cell 4.2 10^3/uL (4.4-10.8)
[2024-01-27 04:34] LABS: Hematocrit 25.4 % (41.0-53.0); Hemoglobin 8.6 g/dL (13.5-17.5); Lymphocytes % (auto) 33.3 % (10.0-50.0); Mean Corpuscular Hemoglobin 36.9 pg (28.0-32.0); Mean Corpuscular Volume 108.4 fL (80.0-100.0); Monocytes % (auto) 2.9 % (0.0-12.0); Neutrophils % (auto) 63.5 % (37.0-80.0); Platelet Count (auto) 46 10^3/uL (140-450); Red Blood Cells 2.34 10^6/uL (4.5-5.90)
[2024-01-27 04:48] LABS: Alanine Aminotransferase 80 U/L (7-40); Alkaline Phosphatase 139 U/L (46-116); Anion Gap 12 (5-15); BUN/Creatinine Ratio 10.1 (10.0-20.0); Blood Urea Nitrogen 54 mg/dL (9-23); Carbon Dioxide 22 mmol/L (20-30); Chloride 98 mmol/L (98-107); Glucose 171 mg/dL (74-106); Potassium 4.3 mmol/L (3.5-5.1); Sodium 132 mmol/L (136-145)
[2024-01-27 04:49] LABS: Albumin 3.1 g/dL (3.2-4.8); Aspartate Aminotransferase 95 U/L (13-40); Bilirubin, Total 3.7 mg/dL (0.2-1.0); Total Protein 5.9 g/dL (5.7-8.2)
[2024-01-27 05:03] LABS: Red Cell Distribution Width 20.5 % (11.8-14.3)
[2024-01-27 08:03] LABS: Platelet Estimate Decreased
[2024-01-27 08:08] LABS: Base Excess -5.1 mmol/L (-2.0-3.0)
[2024-01-27] MEDS: ALBUMIN 25% 100 ML IV ONE (10:41)
[2024-01-27] MEDS: SODIUM CHL 0.9% 1000 ML BAG XX ONE (12:11)
[2024-01-27] MEDS: CEFEPIME 2GM/50ML 50 ML IV SCH (12:53)
[2024-01-27] MEDS ORDERED: CALC667C PO (13:41)
[2024-01-27] MEDS ORDERED: MIDO5TAB22 PO (13:41)
[2024-01-27] MEDS ORDERED: PANT40TA57 PO (13:41)
[2024-01-27] MEDS ORDERED: ASPI-325 PO (13:41)
[2024-01-27] MEDS ORDERED: LACT10SO3 PO (13:41)
[2024-01-27] MEDS ORDERED: RIFA550T PO (13:41)
[2024-01-27] MEDS ORDERED: CARV3.1240 PO (13:41)
[2024-01-27] MEDS ORDERED: ATOR10TA52 PO (13:41)
[2024-01-27] MEDS: LACTULOSE 20Gm/30ML SOLN NG SCH (14:23)
[2024-01-28] VITALS (107 sets, daily range): BP systolic 84–132; BP diastolic 42–61; PULSE 51–76; RESP 11–19; TEMP 95.8–98.1; O2SAT 91–100
[2024-01-28 04:12] LABS: Basophils # (auto) 0 10 ^3/uL (0-0.2); Eosinophils # (auto) 0 10 ^3/uL (0-0.8); Hemoglobin 8.1 g/dL (13.5-17.5); Lymphocytes # (auto) 0.9 10 ^3/uL (0.4-5.4); Monocytes # (auto) 0.4 10 ^3/uL (0-1.3); Nucleated Red Blood Cells % 0.1 %
[2024-01-28 04:15] LABS: Basophils % (auto) 0.2 % (0.0-2.0); Hematocrit 23.9 % (41.0-53.0); Mean Corpuscular Hemoglobin 36.7 pg (28.0-32.0); Mean Corpuscular Hgb Conc. 33.8 g/dL (32.0-36.0); Mean Corpuscular Volume 108.5 fL (80.0-100.0); Monocytes % (auto) 12.1 % (0.0-12.0); Neutrophils # (auto) 2.1 10 ^3/uL (1.6-8.6); Neutrophils % (auto) 60.7 % (37.0-80.0); Platelet Count (auto) 40 10^3/uL (140-450); White Blood Cell 3.5 10^3/uL (4.4-10.8)
[2024-01-28 04:30] LABS: Red Cell Distribution Width 20.2 % (11.8-14.3)
[2024-01-28 04:41] LABS: Alanine Aminotransferase 67 U/L (7-40); Albumin 3.3 g/dL (3.2-4.8); Alkaline Phosphatase 120 U/L (46-116); Anion Gap 17 (5-15); Aspartate Aminotransferase 64 U/L (13-40); BUN/Creatinine Ratio 10.1 (10.0-20.0); Bilirubin, Total 3.6 mg/dL (0.2-1.0); Calcium 9.4 mg/dL (8.7-10.4); Carbon Dioxide 18 mmol/L (20-30); Chloride 103 mmol/L (98-107); Glucose 144 mg/dL (74-106); Sodium 138 mmol/L (136-145)
[2024-01-28 04:44] LABS: Blood Urea Nitrogen 43 mg/dL (9-23)
[2024-01-28 06:17] LABS: Platelet Estimate Decreased
[2024-01-28 06:18] LABS: Anisocytosis Slight; Macrocytosis Moderate
[2024-01-28 06:24] LABS: Stomatocytes Few; Target Cell FEW
[2024-01-28 07:45] LABS: Amphetamine Screen, Urine Neg (NEGATIVE)
[2024-01-28 07:46] LABS: Barbiturate Scree,Urine Neg (NEGATIVE)
[2024-01-28 07:48] LABS: Benzodiazephine Screen, Urine Pos (NEGATIVE); Cannabinoid Screen, Urine Neg (NEGATIVE); Cocaine Screen, Urine Neg (NEGATIVE); Opiate Scree,Urine Neg (NEGATIVE); Phencyclidine Screen, Urine Neg (NEGATIVE)
[2024-01-28] MEDS: POTASSIUM CHL 20MEQ/100ML 100 ML IV SCH (10:43)
[2024-01-28 12:06] LABS: Protein, Body Fluid 0.6 g/dL (.)
[2024-01-28] MEDS: VANCOMYCIN 500 MG in D5W 5% 100 ML IV ONE (12:06)
[2024-01-28] MEDS ORDERED: CLINIMIX PER PHARMACY 0 ML IV SCH (12:30)
[2024-01-28] MEDS ORDERED: DEXTROSE (50%) 50ML SYRG IV SCH (13:30)
[2024-01-28] MEDS: ACCU-CHEK COMFORT CURVE STRIP VI SCH (17:29)
[2024-01-28] MEDS: InsuLIN REG 1unit/0.01ml Soln (100units/ml) SC SCH (17:33)
[2024-01-28] MEDS: AMINO ACID INFUSION IN D10W 1,000 ML IV SCH (22:27)
[2024-01-29] VITALS (112 sets, daily range): BP systolic 106–150; BP diastolic 47–93; PULSE 66–99; RESP 10–30; TEMP 97.6–98.6; O2SAT 98–100
[2024-01-29 04:21] LABS: Basophils # (auto) 0 10 ^3/uL (0-0.2); Basophils % (auto) 0.7 % (0.0-2.0); Eosinophils # (auto) 0 10 ^3/uL (0-0.8); Hematocrit 27.4 % (41.0-53.0); Hemoglobin 9.2 g/dL (13.5-17.5); Lymphocytes # (auto) 0.7 10 ^3/uL (0.4-5.4); Lymphocytes % (auto) 20.7 % (10.0-50.0); Mean Corpuscular Hemoglobin 36.5 pg (28.0-32.0); Mean Corpuscular Hgb Conc. 33.6 g/dL (32.0-36.0); Mean Corpuscular Volume 108.9 fL (80.0-100.0); Monocytes # (auto) 0.5 10 ^3/uL (0-1.3); Neutrophils # (auto) 2.1 10 ^3/uL (1.6-8.6); Neutrophils % (auto) 63.6 % (37.0-80.0); Nucleated Red Blood Cells % 0.1 %; Platelet Count (auto) 38 10^3/uL (140-450); Red Blood Cells 2.52 10^6/uL (4.5-5.90); White Blood Cell 3.4 10^3/uL (4.4-10.8)
[2024-01-29 04:22] LABS: Red Cell Distribution Width 20.7 % (11.8-14.3)
[2024-01-29 04:33] LABS: Alanine Aminotransferase 70 U/L (7-40); Albumin 3.2 g/dL (3.2-4.8); Alkaline Phosphatase 122 U/L (46-116); Anion Gap 14 (5-15); Aspartate Aminotransferase 67 U/L (13-40); BUN/Creatinine Ratio 10.5 (10.0-20.0); Bilirubin, Total 3.3 mg/dL (0.2-1.0); Calcium 9.2 mg/dL (8.7-10.4); Carbon Dioxide 19 mmol/L (20-30); Chloride 105 mmol/L (98-107); Glucose 166 mg/dL (74-106); Magnesium 2.4 mg/dL (1.6-2.6); Phosphorus 6.9 mg/dL (2.4-5.1); Potassium 2.8 mmol/L (3.5-5.1); Sodium 138 mmol/L (136-145)
[2024-01-29 04:37] LABS: Blood Urea Nitrogen 58 mg/dL (9-23)
[2024-01-29] MEDS ORDERED: SODIUM CHL 0.9% 1000 ML BAG XX ONE (07:00)
[2024-01-29] MEDS: POTASSIUM CHL 20MEQ/100ML 100 ML IV ONE ×3 (07:44→12:03)
[2024-01-29] MEDS: LACTULOSE 20Gm/30ML SOLN NG SCH (12:03)
[2024-01-29 15:04] LABS: Base Excess -6.6 mmol/L (-2.0-3.0)
[2024-01-29] MEDS: VANCOMYCIN 500 MG in D5W 5% 100 ML IV ONE (19:45)
[2024-01-29] MEDS: EPOETIN ALFA-EPBX 10,000 UNIT/1ML VIAL SC ONE (20:58)
[2024-01-29] MEDS: Nepro With Carb Steady 1 Liter Bottle GT SCH (20:58)
[2024-01-30] VITALS (110 sets, daily range): BP systolic 104–163; BP diastolic 55–93; PULSE 74–100; RESP 9–20; TEMP 98.2–99.4; O2SAT 97–100
[2024-01-30 04:19] LABS: Basophils # (auto) 0 10 ^3/uL (0-0.2); Eosinophils # (auto) 0 10 ^3/uL (0-0.8); Hematocrit 28.4 % (41.0-53.0); Hemoglobin 9.3 g/dL (13.5-17.5); Lymphocytes # (auto) 0.8 10 ^3/uL (0.4-5.4); Monocytes # (auto) 0.4 10 ^3/uL (0-1.3); White Blood Cell 2.9 10^3/uL (4.4-10.8)
[2024-01-30 04:21] LABS: Basophils % (auto) 1.3 % (0.0-2.0); Lymphocytes % (auto) 29.1 % (10.0-50.0); Mean Corpuscular Hemoglobin 35.2 pg (28.0-32.0); Mean Corpuscular Hgb Conc. 32.6 g/dL (32.0-36.0); Monocytes % (auto) 12.9 % (0.0-12.0); Neutrophils # (auto) 1.6 10 ^3/uL (1.6-8.6); Neutrophils % (auto) 56.7 % (37.0-80.0); Nucleated Red Blood Cells % 0.4 %; Platelet Count (auto) 31 10^3/uL (140-450); Red Blood Cells 2.63 10^6/uL (4.5-5.90)
[2024-01-30 04:23] LABS: Red Cell Distribution Width 20.4 % (11.8-14.3)
[2024-01-30 04:30] LABS: Alanine Aminotransferase 62 U/L (7-40); Albumin 3.1 g/dL (3.2-4.8); Alkaline Phosphatase 119 U/L (46-116); Anion Gap 8 (5-15); Aspartate Aminotransferase 50 U/L (13-40); BUN/Creatinine Ratio 9.1 (10.0-20.0); Calcium 8.7 mg/dL (8.7-10.4); Carbon Dioxide 22 mmol/L (20-30); Chloride 107 mmol/L (98-107); Glucose 164 mg/dL (74-106); Magnesium 2.1 mg/dL (1.6-2.6); Potassium 3.6 mmol/L (3.5-5.1); Sodium 137 mmol/L (136-145)
[2024-01-30 04:31] LABS: Bilirubin, Total 3.5 mg/dL (0.2-1.0); Phosphorus 3.6 mg/dL (2.4-5.1); Total Protein 5.8 g/dL (5.7-8.2)
[2024-01-30 04:38] LABS: Blood Urea Nitrogen 35 mg/dL (9-23)
[2024-01-30 05:00] LABS: Macrocytosis Slight; Platelet Estimate Decreased
[2024-01-30 05:04] LABS: Stomatocytes Few
[2024-01-30 05:07] LABS: Target Cell FEW
[2024-01-30 07:49] LABS: Base Excess -2.9 mmol/L (-2.0-3.0)
[2024-01-31] VITALS: BP 118/59; PULSE 93; PULSE 94; RESP 14; RESP 15; TEMP 99.4; O2SAT 98
[2024-01-31] MEDS ORDERED: SODIUM CHL 0.9% 1000 ML BAG XX ONE (07:00)
[2024-01-31] MEDS ORDERED: EPOETIN ALFA-EPBX 4,000 UNIT/ML VIAL SC ONE (21:00)
== END 2024-01-31 00:25 | disposition short-term general hospital (02) | DRG 870 ==
LOC: ER 08:18 → EDBD 08:18 → OVERFLOW 12:56 → ICU WEST 13:09
PROVIDERS: ADMIT Nurse Practitioner Family; ATTEND Internal Medicine
PROC: 5A1955Z Respiratory Ventilation, Greater than 96 Consecutive Hours (ICD-10-PCS; principal; 2024-01-26)
PROC: 0W9G3ZZ Drainage of Peritoneal Cavity, Percutaneous Approach (ICD-10-PCS; 2024-01-26)
PROC: 02HV33Z Insertion of Infusion Device into Superior Vena Cava, Percutaneous Approach (ICD-10-PCS; 2024-01-26)
PROC: B548ZZA Ultrasonography of Superior Vena Cava, Guidance (ICD-10-PCS; 2024-01-26)
PROC: 0BH17EZ Insertion of Endotracheal Airway into Trachea, Via Natural or Artificial Opening (ICD-10-PCS; 2024-01-26)
PROC: 5A1D70Z Performance of Urinary Filtration, Intermittent, Less than 6 Hours Per Day (ICD-10-PCS; 2024-01-27)
PROC: 3E0436Z Introduction of Nutritional Substance into Central Vein, Percutaneous Approach (ICD-10-PCS; 2024-01-28)
PROC: 5A1D70Z Performance of Urinary Filtration, Intermittent, Less than 6 Hours Per Day (ICD-10-PCS; 2024-01-29)
DX: A41.9 Sepsis, unspecified organism (principal); G93.41 Metabolic encephalopathy; J96.01 Acute respiratory failure with hypoxia; J96.02 Acute respiratory failure with hypercapnia; N18.6 End stage renal disease; K76.7 Hepatorenal syndrome; R65.21 Severe sepsis with septic shock; N17.9 Acute kidney failure, unspecified; K92.2 Gastrointestinal hemorrhage, unspecified; I12.0 Hypertensive chronic kidney disease with stage 5 chronic kidney disease or end stage renal disease; D61.818 Other pancytopenia; Z94.0 Kidney transplant status; E87.20 Acidosis, unspecified; E44.0 Moderate protein-calorie malnutrition; E72.20 Disorder of urea cycle metabolism, unspecified; T86.19 Other complication of kidney transplant; N39.0 Urinary tract infection, site not specified; K76.82 Hepatic encephalopathy; I16.0 Hypertensive urgency; K40.90 Unilateral inguinal hernia, without obstruction or gangrene, not specified as recurrent; K80.20 Calculus of gallbladder without cholecystitis without obstruction; Z20.822 Contact with and (suspected) exposure to COVID-19; D63.1 Anemia in chronic kidney disease; I48.91 Unspecified atrial fibrillation; Y83.8 Other surgical procedures as the cause of abnormal reaction of the patient, or of later complication, without mention of misadventure at the time of the procedure; F17.200 Nicotine dependence, unspecified, uncomplicated; N28.1 Cyst of kidney, acquired; E78.5 Hyperlipidemia, unspecified; F10.10 Alcohol abuse, uncomplicated; Y90.9 Presence of alcohol in blood, level not specified; Z99.2 Dependence on renal dialysis; Z88.0 Allergy status to penicillin; Z79.899 Other long term (current) drug therapy; Z83.3 Family history of diabetes mellitus; Z68.22 Body mass index [BMI] 22.0-22.9, adult; Y92.89 Other specified places as the place of occurrence of the external cause
CPT/HCPCS: 31500; 36415; 36600; 49083; 70450; 71045; 74176; 76705; 80053; 80202; 80307; 80320; 81001; 82140; 82270; 82728; 82805; 82962; 83540; 83550; 83605; 83735; 83986; 84100; 84484; 85025; 85610; 85730; 86850; 86900; 86901; 87040; 87070; 87081; 87086; 87088; 87205; 87340; 87426; 87804; 89051; 90935; 93005; 94002; 94003; 96361; 96374; 96375; 99291; G0378; J1642; J2470; J2704; J3480; J7060; P9047